=== PATIENT | female | born 1955 | race Caucasian/White ===

== ENCOUNTER → 2019-08-02 10:59 | Outpatient (CLI) | payer MEDICARE, OTHER, SELFPAY ==
--- NOTE | 2019-08-02 | DI.MRI.S_ITS ---
PROCEDURE: MR LUMBAR SPINE WO CON INDICATIONS: Spinal stenosis, lumbosacral region TECHNIQUE: Noncontrast sagittal T1 spin echo and T2 fast echo, sagittal STIR, axial T1 and T2 fast spin echo through the lumbar spine. In cases with scoliosis, additional coronal T2 fast spin echo may be performed. COMPARISON: None. FINDINGS: Image quality: Excellent. Alignment and Curvature: Grade 1/2 anterolisthesis of L4 on L5. Bone Marrow: No acute fracture identified. Postsurgical changes related to laminectomies at L4-L5, L5-S1. Scattered small Schmorl's nodes no definite adjacent marrow edema Spinal Cord: Conus medullaris terminates at the L1-L2 level. Visualized cord demonstrates normal signal and size. Paraspinous Soft Tissues: There is nonspecific, dependent posterior subcutaneous soft tissue edema from level of L1-L3. L1-L2: Mild central canal narrowing. Lateral recess appear grossly patent. Mild bilateral foraminal narrowing. L2-L3: Mild dorsal epidural lipomatosis. Moderate central canal narrowing. Partial effacement of both lateral recesses with bilaterally symmetric appearance. Mild bilateral foraminal stenoses although perineural fat appears grossly preserved bilaterally L3-L4: Severe central canal stenosis. Partial effacement of both lateral recesses with bilaterally symmetric appearance. Mild bilateral foraminal narrowing L4-L5: Minimal residual central canal narrowing. Partial effacement of both lateral recesses with bilaterally symmetric appearance. Severe right foraminal stenosis with nerve root compression. Mild left foraminal narrowing L5-S1: No residual high-grade central canal narrowing. IMPRESSION: Postsurgical changes related to laminectomies at L4-L5 and L5-S1. Severe L3-L4 central canal stenosis and bilateral subarticular narrowing. Severe right L4-L5 foraminal stenosis Moderate L2-L3 central canal narrowing Grade 1/2 anterolisthesis of L4 on L5. Dictated by: Keegan Brown M.D. on 08/04/2019 at 9:53 Approved by: Keegan Brown M.D. on 08/04/2019 at 10:08
== END ==
PROVIDERS: Family Provider Family Medicine; PCP Family Medicine; Referring Provider Acupuncturist; Visit Provider Acupuncturist
DX: M48.061 Spinal stenosis, lumbar region without neurogenic claudication (principal); M43.16 Spondylolisthesis, lumbar region; Z98.890 Other specified postprocedural states
CPT/HCPCS: 72148

== ENCOUNTER 2020-12-01 20:09 | Emergency (ER) | payer MEDICARE, OTHER, SELFPAY ==
[2020-12-01 20:15] VITALS: BP 142/70; PULSE 105; RESP 14; TEMP 37.3; O2SAT 97; BMI 37.7
--- NOTE | 2020-12-01 20:32 | PC.NURSE ---
Pt states cough started 2 months prior, noticed wheezing for 3 days now. History of COPD, asthma, bronchitis. Unable to lay flat, states she sleeps with a wedge to stay propped up. Denies sick contacts, recently traveled and returned from [place].
[2020-12-01 20:47] LABS: COVID19 -Nasal RAPID Negative (Negative)
--- NOTE | 2020-12-01 22:03 | DI.RAD.S_ITS ---
PROCEDURE: XR CHEST 2V INDICATIONS: wheezing TECHNIQUE: 2 views of the chest were acquired. COMPARISON: [facility], CR, XR CHEST 2 VIEWS, 07/23/2020, 14:35. FINDINGS: Surgical changes and devices: None. Lungs and pleura: Lungs are clear. No pleural effusions or pneumothorax. Mediastinum: Mediastinal contours are normal. Heart size is normal. Bones and chest wall: No suspicious bony abnormalities. Soft tissues appear unremarkable. IMPRESSION: No evidence acute pulmonary process. Dictated by: John Broussard M.D. on 12/02/2020 at 8:39 Approved by: John Broussard M.D. on 12/02/2020 at 8:40
--- NOTE | 2020-12-01 22:11 | ED_ITS ---
HPI - URI/Sore Throat General Chief Complaint: Upper Respiratory Symptoms Stated Complaint: difficulty breathing, wheezing, cough Time Seen by Provider: 12/01/20 21:44 Source: patient Mode of arrival: Ambulatory Limitations: no limitations History of Present Illness HPI Narrative: Patient is a 65-year-old female with history of smoking but quit 4 years ago and hypertension presenting with wheezing ongoing for the last 2 months. She has been using her albuterol inhaler nonstop she said that she has had chest x-rays but nothing ever show she feels like she has bronchitis. She denies any fever. However 2 months ago she drove to [place] and and then later went to [place]. She said just before she went to [place] is she tested positive for influenza. She is having some increasing shortness of breath at times her wheezing certainly is not getting any better she is having more nasal drainage cough she occasionally has some chest pain. Related Data Home Medications Medication Instructions Recorded Confirmed albuterol sulfate 90 mcg/actuation 1 puff INHALATION Q4-6H PRN 04/12/18 09/23/19 aerosol inhaler fish, borage, flaxseed oils-omega 1 cap PO DAILY 04/12/18 09/23/19 3,6,9 cb #1 400 mg-400 mg-400 mg cap afukfnrtlwi-xod-fjlrvjoqr-vitC cap PO cap 04/12/18 09/23/19 capsule hydrochlorothiazide 25 mg tablet 25 mg PO DAILY 04/12/18 09/23/19 krill 1,000 mg-omega-3 230 mg-dha 1 cap PO DAILY 04/12/18 09/23/19 60 oa-cie-gzhnbdand-astaxan capsule oxycodone 5 mg tablet 5 mg PO Q4-6H PRN 04/12/18 09/23/19 simvastatin 40 mg tablet 40 mg PO BEDTIME 04/12/18 09/23/19 lisinopril 5 mg tablet 5 mg PO DAILY 11/26/18 09/23/19 oxybutynin chloride 5 mg 5 mg PO DAILY 11/26/18 09/23/19 tablet,extended release 24 hr meloxicam 7.5 mg tablet 7.5 mg PO DAILY PRN 04/22/19 09/23/19 Previous Rx's Medication Instructions Recorded citalopram 10 mg tablet 10 mg PO DAILY #30 tab 01/10/20 oxcarbazepine 300 mg tablet 300 mg PO BID #60 tab 06/27/19 doxycycline hyclate 100 mg PO BID #14 cap 12/01/20 prednisone 40 mg PO DAILY #10 tab 12/01/20 Allergies Allergy/AdvReac Type Severity Reaction Status Date / Time povidone-iodine Allergy Severe hives, Verified 12/01/20 20:20 [From Betadine] blisters soap [From Betadine] Allergy Severe hives, Verified 12/01/20 20:20 blisters Penicillins Allergy Intermediate mouth Verified 12/01/20 20:20 swells bupropion [From Wellbutrin] Allergy Mild Verified 12/01/20 20:20 ibuprofen Allergy Mild Verified 12/01/20 20:20 Sulfa (Sulfonamide Allergy Mild Verified 12/01/20 20:20 Antibiotics) trazodone Allergy Mild Verified 12/01/20 20:20 nitrofurantoin AdvReac Intermediate hives,itchi Verified 12/01/20 20:20 ng aripiprazole [From Abilify] AdvReac Mild akithisia Verified 12/01/20 20:20 fluoxetine [From Prozac] AdvReac Mild Verified 12/01/20 20:20 Review of Systems Review of Systems ROS Unobtainable: All systems reviewed & are unremarkable except as noted in HPI and below Constitutional Constitutional: Denies chills, Denies fever(s), Denies lethargy and Denies weakness ENT Ears, Nose, Mouth, and Throat: Denies change in voice, Denies neck pain and Denies sore throat Cardiovascular Cardiovascular: Reports chest pain, Denies chest pain at rest, Denies irregular heart rhythm, Denies leg edema, Denies dyspnea on exertion and Denies orthopnea Respiratory Respiratory: Reports cough, Denies excessive phlegm production, Denies pain on inspiration, Denies dyspnea on exertion and Reports wheezing Gastrointestinal Gastrointestinal: Denies abdominal pain, Denies change in bowel habits, Denies diarrhea, Denies nausea and Denies vomiting Musculoskeletal Musculoskeletal: Denies back pain, Denies myalgias and Denies neck pain Integumentary/Breasts Skin/Breast: Denies pruritus, Denies erythema, Denies rash and Denies wounds Neurologic Neurologic: Denies weakness Allergic/Immunologic Allergic/Immunologic: Reports wheezing Patient History Medical History Hypertension Social History Smoking Status: Former smoker Smoking Status: Former smoker alcohol intake frequency: holidays/special occasions only Substance Use Type: does not use Exam Initial Vital Signs Initial Vital Signs: Vital Signs Temperature 99.1 F 12/01/20 20:15 Pulse Rate 105 H 12/01/20 20:15 Respiratory Rate 14 12/01/20 20:15 Blood Pressure 142/70 H 12/01/20 20:15 Pulse Oximetry 97 12/01/20 20:15 GENERAL: Alert 65 year female and in no acute distress. HEENT: Head atraumatic,EOMI, pupils reactive, face symmetric, moist mucous membranes CARDIOVASCULAR: Regular rate and rhythm without murmurs, rubs or gallops. RESPIRATORY: Breath sounds equal bilaterally Speaks in full sentences with out difficulty mild bilateral wheezing ABDOMEN: Soft, nontender. Normoactive bowel sounds all 4 quadrants. No guarding or rebound. EXTREMITIES: Normal range of motion, no clubbing or edema. Neurovascularly intact NEUROLOGICAL: Alert and oriented x4.Normal gait and speech. SKIN: Warm, dry, no laceration, no petechiae, no rashes or lesions. Scores PERC Score Age greater than or equal to 50 years: Yes Heart rate greater than or equal to 100 bpm: No Room Air O2 Sat less than 95%: No Unilateral leg swelling: No Recent trauma or surgery: No Hemoptysis: No Prior PE or DVT: No Hormone Use: No Total PERC Score: 1 Wells' Criteria for PE Clinical signs and symptoms of DVT: No PE is #1 Dx or equally likely: No Heart rate > 100: No Immobilization at least 3 days or surg in previous 4 weeks: No History of PE or DVT: No Hemoptysis: No Malignancy w/Treatment within 6 months or palliative: No Wells' PE Score total: 0 Course Orders Ordered: ED Orders 12/01/20 20:26 COVID19 -Nasal swab/Pre-Proc Stat 12/01/20 22:03 XR chest 2V Stat EKG-12 Lead Stat 12/01/20 22:21 Complete Blood Count AUTO DIFF Stat Comprehensive Metabolic Panel Stat D Dimer Stat NT-proBNP (BNP-Adult 18+) Stat Troponin & CK Cardiac Panel Stat Discontinued Medications Albuterol/Ipratropium (Albuterol/Ipratropium 3 Ml Ampul) 3 ml INH NOW ONE Stop: 12/01/20 22:04 Last Admin: 12/01/20 22:15 Dose: 3 ml Documented by: EVETTE Vital Signs Vital signs: Vital Signs - 8 hr 12/01/20 20:15 12/01/20 22:15 12/01/20 22:38 Temperature 99.1 F Pulse Rate 105 H 92 H 91 H Respiratory Rate 14 21 20 Blood Pressure 142/70 H 129/86 Pulse Oximetry 97 95 96 12/01/20 23:03 12/01/20 23:08 Temperature Pulse Rate 89 90 Respiratory Rate Blood Pressure 130/83 Pulse Oximetry 95 97 MDM - URI/Sore Throat Lab Data Attestation: I reviewed the patient's lab results. Result diagrams: 12/01/20 22:21 12/01/20 22:21 Labs: Lab Results 12/01/20 12/01/20 12/01/20 Range/Units 20:26 22:21 22:21 WBC 11.2 H (4.5-11.0) X10^3/uL RBC 5.13 (4.0-5.2) X10^6/uL Hgb 15.3 (12.0-16.0) g/dL Hct 45.0 (36-46) % MCV 87.9 (80-100) fL MCH 29.9 (26-34) PG MCHC 34.0 (30-36) % RDW 12.6 (11.6-14.8) % Plt Count 196 (150-400) X10^3/uL Neut % (Auto) 47.2 L (50-75) % Lymph % (Auto) 41.2 H (25-40) % Miller % (Auto) 6.0 (3-14) % Eos % (Auto) 4.4 H (2-4) % Baso % (Auto) 1.2 (0-2) % Neut # (Auto) 5300 (2473-3955) /uL Lymph # (Auto) 4600 H (2380-2263) /uL Miller # (Auto) 700 (0-900) /uL Eos # (Auto) 500 H (0-450) /uL Baso # (Auto) 100 (0-100) /uL D-Dimer 287 H (<230) ng/mL Sodium (137-145) mmol/L Potassium (3.4-5.1) mmol/L Chloride (98-107) mmol/L Carbon Dioxide (22-32) mmol/L BUN (7-17) mg/dL Creatinine (0.52-1.04) mg/dL Estimated GFR (>60) mL/min BUN/Creatinine Ratio (6-22) Glucose (80-110) mg/dL Calcium (8.4-10.2) mg/dL Total Bilirubin (0.2-1.3) mg/dL AST (14-36) IU/L ALT (<35) IU/L Alkaline Phosphatase (38-126) U/L Total Creatine Kinase (30-135) U/L CK-MB (CK-2) (<2.37) ng/mL CK-MB (CK-2) Rel Index (1.5-5.0) % Troponin I (0.01-0.034) ng/mL NT-Pro-B Natriuret Pep (<125) pg/mL Total Protein (6.3-8.2) g/dL Albumin (3.5-5.0) g/dL Globulin (1.7-4.1) g/dL Albumin/Globulin Ratio (1.0-2.8) SARS-CoV-2 (PCR) Negative (Negative) 12/01/20 Range/Units 22:21 WBC (4.5-11.0) X10^3/uL RBC (4.0-5.2) X10^6/uL Hgb (12.0-16.0) g/dL Hct (36-46) % MCV (80-100) fL MCH (26-34) PG MCHC (30-36) % RDW (11.6-14.8) % Plt Count (150-400) X10^3/uL Neut % (Auto) (50-75) % Lymph % (Auto) (25-40) % Miller % (Auto) (3-14) % Eos % (Auto) (2-4) % Baso % (Auto) (0-2) % Neut # (Auto) (9080-7724) /uL Lymph # (Auto) (0631-7221) /uL Miller # (Auto) (0-900) /uL Eos # (Auto) (0-450) /uL Baso # (Auto) (0-100) /uL D-Dimer (<230) ng/mL Sodium 141 (137-145) mmol/L Potassium 4.0 (3.4-5.1) mmol/L Chloride 105 (98-107) mmol/L Carbon Dioxide 24 (22-32) mmol/L BUN 27 H (7-17) mg/dL Creatinine 1.01 (0.52-1.04) mg/dL Estimated GFR 54.7 L (>60) mL/min BUN/Creatinine Ratio 26.7 H (6-22) Glucose 109 (80-110) mg/dL Calcium 10.1 (8.4-10.2) mg/dL Total Bilirubin 0.5 (0.2-1.3) mg/dL AST 33 (14-36) IU/L ALT 32 (<35) IU/L Alkaline Phosphatase 91 (38-126) U/L Total Creatine Kinase 116 (30-135) U/L CK-MB (CK-2) 1.09 (<2.37) ng/mL CK-MB (CK-2) Rel Index 0.9 L (1.5-5.0) % Troponin I < 0.012 (0.01-0.034) ng/mL NT-Pro-B Natriuret Pep 54 (<125) pg/mL Total Protein 7.8 (6.3-8.2) g/dL Albumin 4.7 (3.5-5.0) g/dL Globulin 3.1 (1.7-4.1) g/dL Albumin/Globulin Ratio 1.5 (1.0-2.8) SARS-CoV-2 (PCR) (Negative) Imaging Data Chest x-ray: Radiologist's Impression: Preliminary report no acute cardiopulmonary process ECG Data Attestation: I personally reviewed and interpreted this ECG as follows: Prior ECG tracings: not available for review Interpretation: Normal sinus rhythm rate 92 p.r. interval 144 QRS 84 QTC [address] changes or T-wave inversions MDM Narrative Medical decision making narrative: The patient initially having chronic ongoing symptoms of wheezing and upper respiratory it sounds as though she has had some workup including chest x-rays she says she was possibly seen at [facility] at some point for chest pain however since then she has had at least 2 very long car trips 1 which she was sick with influenza. Blood work chest x-ray and EKG are overall reassuring she is in certainly no respiratory distress and her COVID is negative. D dimer just over normal limits but she is not having significant shortness of breath only wheezing and cough. At this time she is low risk for PE. She is likely having COPD exacerbation she was a former smoker. Will start her on prednisone and antibiotics. There is no evidence of congestive heart failure or pneumonia. Discharge Plan Departure Patient Disposition: Home Clinical Impression: Acute exacerbation of chronic obstructive pulmonary disease Instructions: Chronic Obstructive Pulmonary Disease Activity Restrictions/Additional Instructions: *You have been diagnosed with COPD exacerbation *What to do: At this time fortunately your COVID is negative no sign of heart injury or pneumonia *Continue to take medications as directed--> SENT TO [facility] IN [place] Prednisone 40 mg once a day for 5 days Doxycycline 100 mg twice daily for 7 days *Follow up with your primary care provider in 2-3 days *Return to ER if you should have increasing shortness of breath, wheezing, chest pain or any new, worsening or concerning symptoms Prescriptions: New doxycycline hyclate 100 mg capsule 100 mg PO BID Qty: 14 RF: 0 prednisone 20 mg tablet 40 mg PO DAILY Qty: 10 RF: 0 No Action lisinopril 5 mg tablet 5 mg PO DAILY RF: 0 oxybutynin chloride 5 mg tablet extended release 24hr 5 mg PO DAILY RF: 0 meloxicam 7.5 mg tablet 7.5 mg PO DAILY PRNRF: 0 simvastatin 40 mg tablet 40 mg PO BEDTIME RF: 0 oxycodone 5 mg tablet 5 mg PO Q4-6H PRNRF: 0 hydrochlorothiazide 25 mg tablet 25 mg PO DAILY RF: 0 albuterol sulfate [Ventolin HFA] 90 mcg/actuation HFA aerosol inhaler 1 puff INHALATION Q4-6H PRNRF: 0 ffuusadhokn-ixo-xmzhqfswt-vitC [Glucosamine Complex-MSM] capsule PO RF: 0 fish,bora,flax oils-om3,6,9no1 [Triple [place] 3-6-9] 400-400-400 mg capsule 1 cap PO DAILY RF: 0 rymna-pi-0-yky-obf-qswoxvg-ast [MegaRed [place]-3 Krill Oil] 1,000-230-60 mg capsule 1 cap PO DAILY RF: 0 citalopram 10 mg tablet 10 mg PO DAILY Qty: 30 RF: 5 oxcarbazepine 300 mg tablet 300 mg PO BID Qty: 60 RF: 3 Referrals: Taisha Nunes MD [Primary Care Provider] -
[2020-12-01 22:15] VITALS: PULSE 92; RESP 21; O2SAT 95
[2020-12-01] MEDS: ALBUTEROL/IPRATROPIUM 3 ML AMPUL INH (22:15)
[2020-12-01 22:35] LABS: Add Manual Diff / Slide Review NO; Basophils Absolute Auto 100 /uL (0-100); Basophils Percent Auto 1.2 % (0-2); Eosinophils Absolute Auto 500 /uL (0-450); Eosinophils Percent Auto 4.4 % (2-4); Hemoglobin 15.3 g/dL (12.0-16.0); Lymphocytes Absolute Auto 4600 /uL (1100-4500); Lymphocytes Percent Auto 41.2 % (25-40); Mean Corpuscular Hemoglobin 29.9 PG (26-34); Mean Corpuscular Volume 87.9 fL (80-100); Monocytes Absolute Auto 700 /uL (0-900); Neutrophils Absolute Auto 5300 /uL (1500-7000); Neutrophils Percent Auto 47.2 % (50-75); Platelet Count 196 X10^3/uL (150-400); Red Blood Cell Count 5.13 X10^6/uL (4.0-5.2); Red Cell Distribution Width 12.6 % (11.6-14.8); White Blood Cell Count 11.2 X10^3/uL (4.5-11.0)
[2020-12-01 22:38] VITALS: BP 129/86; PULSE 91; RESP 20; O2SAT 96
[2020-12-01 22:44] LABS: Alanine Aminotransferase 32 IU/L (<35); Albumin 4.7 g/dL (3.5-5.0); Albumin Globulin Ratio 1.5 (1.0-2.8); Alkaline Phosphatase 91 U/L (38-126); Aspartate Aminotransferase 33 IU/L (14-36); BUN Creatinine Ratio 26.7 (6-22); Bilirubin Total 0.5 mg/dL (0.2-1.3); Blood Urea Nitrogen 27 mg/dL (7-17); Calcium 10.1 mg/dL (8.4-10.2); Carbon Dioxide 24 mmol/L (22-32); Chloride 105 mmol/L (98-107); Creatine Kinase 116 U/L (30-135); Estimated Glomerular Filt Rate 54.7 mL/min (>60); Globulin 3.1 g/dL (1.7-4.1); Glucose 109 mg/dL (80-110); HEMOLYSIS < 15 (0-50); Sodium 141 mmol/L (137-145); Total Protein 7.8 g/dL (6.3-8.2)
[2020-12-01 22:46] LABS: D Dimer 287 ng/mL (<230)
[2020-12-01 22:56] LABS: NT-proBNP (BNP-Adult 18+) 54 pg/mL (<125); Troponin I < 0.012 ng/mL (0.01-0.034)
[2020-12-01 22:59] LABS: CKMB % Relative Index 0.9 % (1.5-5.0); Creatine Kinase MB 1.09 ng/mL (<2.37)
[2020-12-01 23:03] VITALS: PULSE 89; O2SAT 95
[2020-12-01 23:08] VITALS: BP 130/83; PULSE 90; O2SAT 97
== END 2020-12-01 23:17 | disposition home or self-care (01) ==
PROVIDERS: Emergency Provider Emergency Medicine; Family Provider Family Medicine; PCP Family Medicine
DX: J44.1 Chronic obstructive pulmonary disease with (acute) exacerbation (principal); R07.9 Chest pain, unspecified; I10 Essential (primary) hypertension; Z20.822 Contact with and (suspected) exposure to COVID-19
CPT/HCPCS: 36415; 71046; 80053; 82550; 82553; 83880; 84484; 85025; 85379; 87635; 93005; 93010; 94640; 99283; 99284; C9803

== ENCOUNTER 2020-12-19 10:02 | Emergency (ER) | payer MEDICARE, OTHER, SELFPAY ==
[2020-12-19 10:45] VITALS: BP 134/91; PULSE 74; RESP 14; TEMP 36.6; O2SAT 99; BMI 35.4
[2020-12-19 11:04] LABS: Appearance Urine UA SL CLOUDY; Bilirubin Urine UA NEGATIVE (NEGATIVE); Color Urine UA YELLOW; Glucose Urine UA NEGATIVE (Negative); Ketones Urine UA NEGATIVE (NEGATIVE); Leukocyte Esterase Urine UA TRACE (NEGATIVE); Nitrite Urine UA NEGATIVE (Negative); Occult Blood Urine UA NEGATIVE (Negative); Protein Urine UA NEGATIVE (Negative); Urobilinogen Urine UA 0.2 E.U./dL (0.2)
[2020-12-19 11:05] LABS: pH Urine UA 5.5 (4.5-8.0)
[2020-12-19 11:13] LABS: Bacteria Urine Moderate (10-30); Culture Indicated Urine Specimen Cultured; RBC Urine 0-1/HPF (0-5/HPF); Squamous Epithelial Cell Urine 0-1 /HPF (0-5/HPF); WBC Urine 10-30/HPF (0-5/HPF)
[2020-12-19 12:52] VITALS: BP 137/76; PULSE 80; TEMP 36.8; O2SAT 97
--- NOTE | 2020-12-19 13:20 | ED_ITS ---
HPI - Back Pain/Injury General Chief Complaint: Back Pain/Injury Stated Complaint: low back/abd pain x 2days Time Seen by Provider: 12/19/20 13:06 Source: patient Limitations: no limitations History of Present Illness HPI Narrative: Patient is a 65-year-old female with history of COPD presenting with back pain and painful frequent urination for 2 days. She also has a history of kidney stones but says that this does not feel like kidney stone. She denies any fever chills nausea or vomiting. She is off having abdominal pain all over as well. She was previously on prednisone and doxycycline for COPD exacerbation on 01 of December. She says she started taking kratom for pain, she bought some last night Related Data Home Medications Medication Instructions Recorded Confirmed albuterol sulfate 90 mcg/actuation 1 puff INHALATION Q4-6H PRN 04/12/18 09/23/19 aerosol inhaler (Ventolin HFA) fish, borage, flaxseed oils-omega 1 cap PO DAILY 04/12/18 09/23/19 3,6,9 cb #1 400 mg-400 mg-400 mg cap (Triple [place] 3-6-9) qzxwazlolby-azf-jqzsjuint-vitC cap PO cap 04/12/18 09/23/19 capsule (Glucosamine Complex-MSM) hydrochlorothiazide 25 mg tablet 25 mg PO DAILY 04/12/18 09/23/19 krill 1,000 mg-omega-3 230 mg-dha 1 cap PO DAILY 04/12/18 09/23/19 60 fy-hsi-zioogvwfa-astaxan capsule (MegaRed [place]-3 Krill Oil) oxycodone 5 mg tablet 5 mg PO Q4-6H PRN 04/12/18 09/23/19 simvastatin 40 mg tablet 40 mg PO BEDTIME 04/12/18 09/23/19 lisinopril 5 mg tablet 5 mg PO DAILY 11/26/18 09/23/19 oxybutynin chloride 5 mg 5 mg PO DAILY 11/26/18 09/23/19 tablet,extended release 24 hr meloxicam 7.5 mg tablet 7.5 mg PO DAILY PRN 04/22/19 09/23/19 Previous Rx's Medication Instructions Recorded citalopram 10 mg tablet 10 mg PO DAILY #30 tab 06/27/19 oxcarbazepine 300 mg tablet 300 mg PO BID #60 tab 06/27/19 doxycycline hyclate 100 mg capsule 100 mg PO BID #14 cap 12/01/20 prednisone 20 mg tablet 40 mg PO DAILY #10 tab 12/01/20 cephalexin 500 mg capsule 500 mg PO BID 7 Days #14 cap 12/19/20 ciprofloxacin HCl 500 mg tablet 500 mg PO BID #14 tab 12/19/20 (Cipro) Allergies Allergy/AdvReac Type Severity Reaction Status Date / Time povidone-iodine Allergy Severe hives, Verified 12/01/20 20:20 [From Betadine] blisters soap [From Betadine] Allergy Severe hives, Verified 12/01/20 20:20 blisters Penicillins Allergy Intermediate mouth Verified 12/01/20 20:20 swells bupropion [From Wellbutrin] Allergy Mild Verified 12/01/20 20:20 ibuprofen Allergy Mild Verified 12/01/20 20:20 Sulfa (Sulfonamide Allergy Mild Verified 12/01/20 20:20 Antibiotics) trazodone Allergy Mild Verified 12/01/20 20:20 nitrofurantoin AdvReac Intermediate hives,itchi Verified 12/01/20 20:20 ng aripiprazole [From Abilify] AdvReac Mild akithisia Verified 12/01/20 20:20 fluoxetine [From Prozac] AdvReac Mild Verified 12/01/20 20:20 Review of Systems Review of Systems Narrative: GENERAL: Denies chills, fatigue, malaise, fever, sweats, travel HEENT: Denies sinus pain, ear pain, sore throat, difficulty swallowing, neck pain RESPIRATORY: Denies dyspnea, cough, wheezing, hemoptysis, sputum. CARDIOVASCULAR: Denies chest pain, palpitations, orthopnea, edema GASTROINTESTINAL: Denies nausea, vomiting, abdominal pain, diarrhea, constipat ion, melena. : See HPI MUSCULOSKELETAL: Denies weakness, joint pain, or bony pain SKIN: No rash, no erythema, no pruritus NEUROLOGIC: Denies weakness, dizziness, headache, numbness, change in speech, confusion PSYCHIATRIC: No concerning psychosocial issues. 12 point review of systems is negative except for those stated above and HPI Patient History Medical History Hypertension Social History Smoking Status: Former smoker Smoking Status: Former smoker alcohol intake frequency: holidays/special occasions only Substance Use Type: other Exam Initial Vital Signs Initial Vital Signs: Vital Signs Temperature 97.9 F 12/19/20 10:45 Pulse Rate 74 12/19/20 10:45 Respiratory Rate 14 12/19/20 10:45 Blood Pressure 134/91 H 12/19/20 10:45 Pulse Oximetry 99 12/19/20 10:45 GENERAL: Alert 65-year-old female appears to not feel well HEENT: Head atraumatic,EOMI, pupils reactive, face symmetric, moist mucous membranes CARDIOVASCULAR: Regular rate and rhythm without murmurs, rubs or gallops. RESPIRATORY: Breath sounds equal bilaterally, no wheezes rales or rhonchi. ABD no right CVA tenderness, no right upper quadrant tenderness negative Olivares sign no right lower quadrant tenderness EXTREMITIES: Normal range of motion, no clubbing or edema. Neurovascularly intact NEUROLOGICAL: Alert and oriented x4.Normal gait and speech. SKIN: Warm, dry, no laceration, no petechiae, no rashes or lesions. Course Orders Ordered: ED Orders 12/19/20 10:45 Urinalysis and Microscopic Stat Urine Culture Stat Urine Drug Screen, Rapid Stat 12/19/20 13:35 Complete Blood Count AUTO DIFF Stat Comprehensive Metabolic Panel Stat Lipase Stat Discontinued Medications Acetaminophen (Acetaminophen 325 Mg Tablet) 975 mg PO NOW ONE Stop: 12/19/20 13:17 Last Admin: 12/19/20 14:32 Dose: 975 mg Documented by: [email or web address] Sodium Chloride (Normal Saline 0.9%) 1,000 mls @ 1,000 mls/hr IV BOLUS ONE Stop: 12/19/20 14:15 Last Admin: 12/19/20 14:31 Dose: 1,000 mls/hr Documented by: [email or web address] Vital Signs Vital signs: Vital Signs - 8 hr 12/19/20 12:52 12/19/20 15:25 12/19/20 15:26 Temperature 98.3 F Pulse Rate 80 66 67 Blood Pressure 137/76 129/66 Pulse Oximetry 97 89 L 98 MDM - Back Pain/Injury Lab Data Result diagrams: 12/19/20 13:35 12/19/20 13:35 Labs: Lab Results 12/19/20 12/19/20 12/19/20 Range/Units 10:45 10:45 13:35 WBC 10.2 (4.5-11.0) X10^3/uL RBC 4.85 (4.0-5.2) X10^6/uL Hgb 14.4 (12.0-16.0) g/dL Hct 42.9 (36-46) % MCV 88.6 (80-100) fL MCH 29.7 (26-34) PG MCHC 33.5 (30-36) % RDW 13.1 (11.6-14.8) % Plt Count 187 (150-400) X10^3/uL Neut % (Auto) 54.6 (50-75) % Lymph % (Auto) 35.3 (25-40) % [place] % (Auto) 6.3 (3-14) % Eos % (Auto) 3.1 (2-4) % Baso % (Auto) 0.7 (0-2) % Neut # (Auto) 5600 (7760-3858) /uL Lymph # (Auto) 3600 (8730-0762) /uL [place] # (Auto) 600 (0-900) /uL Eos # (Auto) 300 (0-450) /uL Baso # (Auto) 100 (0-100) /uL Sodium (137-145) mmol/L Potassium (3.4-5.1) mmol/L Chloride (98-107) mmol/L Carbon Dioxide (22-32) mmol/L BUN (7-17) mg/dL Creatinine (0.52-1.04) mg/dL Estimated GFR (>60) mL/min BUN/Creatinine Ratio (6-22) Glucose (80-110) mg/dL Calcium (8.4-10.2) mg/dL Total Bilirubin (0.2-1.3) mg/dL AST (14-36) IU/L ALT (<35) IU/L Alkaline Phosphatase (38-126) U/L Total Protein (6.3-8.2) g/dL Albumin (3.5-5.0) g/dL Globulin (1.7-4.1) g/dL Albumin/Globulin Ratio (1.0-2.8) Lipase (23-300) U/L Urine Color Yellow Urine Appearance Sl cloudy Urine pH 5.5 (4.5-8.0) Ur Specific [place] 1.020 (1.000-1.035) Urine Protein Negative (Negative) Urine Glucose (UA) Negative (Negative) g/dL Urine Ketones Negative (NEGATIVE) Urine Occult Blood Negative (Negative) Urine Nitrate Negative (Negative) Urine Bilirubin Negative (NEGATIVE) Urine Urobilinogen 0.2 (0.2) E.U./dL Ur Leukocyte Esterase Trace H (NEGATIVE) Urine RBC 0-1/hpf (0-5/HPF) Urine WBC 10-30/hpf H (0-5/HPF) Ur Squamous Epith Cells 0-1 /hpf (0-5/HPF) Urine Bacteria Moderate (10-30) H (None) Ur Culture Indicated? Specimen cultured U Opiates 300ng/mL cut Negative (Negative) Ur Oxycodone Screen Negative (Negative) Urine Methadone Screen Negative (Negative) Ur Barbiturates Screen Negative (Negative) U Tricyclic Antidepress Negative (Negative) Ur Phencyclidine Scrn Negative (Negative) Ur Amphetamines Screen Negative (Negative) U Methamphetamines Scrn Negative (Negative) Ur MDMA Scrn (Ecstasy) Negative (Negative) U Benzodiazepines Scrn Negative (Negative) Urine Cocaine Screen Negative (Negative) U Marijuana (THC) Screen Positive H (Negative) 12/19/20 Range/Units 13:35 WBC (4.5-11.0) X10^3/uL RBC (4.0-5.2) X10^6/uL Hgb (12.0-16.0) g/dL Hct (36-46) % MCV (80-100) fL MCH (26-34) PG MCHC (30-36) % RDW (11.6-14.8) % Plt Count (150-400) X10^3/uL Neut % (Auto) (50-75) % Lymph % (Auto) (25-40) % [place] % (Auto) (3-14) % Eos % (Auto) (2-4) % Baso % (Auto) (0-2) % Neut # (Auto) (5867-4862) /uL Lymph # (Auto) (9349-8526) /uL [place] # (Auto) (0-900) /uL Eos # (Auto) (0-450) /uL Baso # (Auto) (0-100) /uL Sodium 141 (137-145) mmol/L Potassium 3.9 (3.4-5.1) mmol/L Chloride 104 (98-107) mmol/L Carbon Dioxide 30 (22-32) mmol/L BUN 17 (7-17) mg/dL Creatinine 0.88 (0.52-1.04) mg/dL Estimated GFR > 60.0 (>60) mL/min BUN/Creatinine Ratio 19.3 (6-22) Glucose 85 (80-110) mg/dL Calcium 9.9 (8.4-10.2) mg/dL Total Bilirubin 0.5 (0.2-1.3) mg/dL AST 31 (14-36) IU/L ALT 31 (<35) IU/L Alkaline Phosphatase 75 (38-126) U/L Total Protein 7.5 (6.3-8.2) g/dL Albumin 4.6 (3.5-5.0) g/dL Globulin 2.9 (1.7-4.1) g/dL Albumin/Globulin Ratio 1.6 (1.0-2.8) Lipase 103 (23-300) U/L Urine Color Urine Appearance Urine pH (4.5-8.0) Ur Specific [place] (1.000-1.035) Urine Protein (Negative) Urine Glucose (UA) (Negative) g/dL Urine Ketones (NEGATIVE) Urine Occult Blood (Negative) Urine Nitrate (Negative) Urine Bilirubin (NEGATIVE) Urine Urobilinogen (0.2) E.U./dL Ur Leukocyte Esterase (NEGATIVE) Urine RBC (0-5/HPF) Urine WBC (0-5/HPF) Ur Squamous Epith Cells (0-5/HPF) Urine Bacteria (None) Ur Culture Indicated? U Opiates 300ng/mL cut (Negative) Ur Oxycodone Screen (Negative) Urine Methadone Screen (Negative) Ur Barbiturates Screen (Negative) U Tricyclic Antidepress (Negative) Ur Phencyclidine Scrn (Negative) Ur Amphetamines Screen (Negative) U Methamphetamines Scrn (Negative) Ur MDMA Scrn (Ecstasy) (Negative) U Benzodiazepines Scrn (Negative) Urine Cocaine Screen (Negative) U Marijuana (THC) Screen (Negative) [facility] Narrative Medical decision making narrative: Patient does have UTI possible pyelo. She has obvious chronic back pain even wearing a lumbar brace. Blood work is overall reassuring. At this time she really has no flank pain and does not think it is kidney stone related. Pain seems to be controlled in the emergency department. Probable pyelonephritis. The patient has multiple allergies to medications. Initially she was written for Cipro however said that she cannot take Cipro. I then started her on Keflex. She does not remember what allergy she has to penicillin and is willing to try Keflex. At this time low suspicion for appendicitis. This time she agrees no CT and feels ready and able to go Discharge Plan Departure Patient Disposition: Home Clinical Impression: Acute UTI Instructions: DI for Urinary Tract Infection (UTI) Activity Restrictions/Additional Instructions: *You have been diagnosed with UTI *What to do: At this time you are found to have a bladder infection. Please take antibiotics as prescribed until gone *Continue to take medications as directed Cephalexin 500 mg twice a day for 7 days *Follow up with your primary care provider in 2-3 days *Return to ER if you should have increasing pain, fever, persistent vomiting or any new, worsening or concerning symptoms Prescriptions: New ciprofloxacin HCl [Cipro] 500 mg tablet 500 mg PO BID Qty: 14 RF: 0 cephalexin 500 mg capsule 500 mg PO BID 7 Days Qty: 14 RF: 0 No Action lisinopril 5 mg tablet 5 mg PO DAILY RF: 0 oxybutynin chloride 5 mg tablet extended release 24hr 5 mg PO DAILY RF: 0 meloxicam 7.5 mg tablet 7.5 mg PO DAILY PRNRF: 0 simvastatin 40 mg tablet 40 mg PO BEDTIME RF: 0 oxycodone 5 mg tablet 5 mg PO Q4-6H PRNRF: 0 hydrochlorothiazide 25 mg tablet 25 mg PO DAILY RF: 0 albuterol sulfate [Ventolin HFA] 90 mcg/actuation HFA aerosol inhaler 1 puff INHALATION Q4-6H PRNRF: 0 uqsdakqjhpu-aec-fzalsmtft-vitC [Glucosamine Complex-MSM] capsule PO RF: 0 fish,bora,flax oils-om3,6,9no1 [Triple [place] 3-6-9] 400-400-400 mg capsule 1 cap PO DAILY RF: 0 uatex-dv-6-iba-xtr-jbjatqx-ast [MegaRed [place]-3 Krill Oil] 1,000-230-60 mg capsule 1 cap PO DAILY RF: 0 citalopram 10 mg tablet 10 mg PO DAILY Qty: 30 RF: 5 oxcarbazepine 300 mg tablet 300 mg PO BID Qty: 60 RF: 3 doxycycline hyclate 100 mg capsule 100 mg PO BID Qty: 14 RF: 0 prednisone 20 mg tablet 40 mg PO DAILY Qty: 10 RF: 0 Referrals: Taisha Nunes MD [Primary Care Provider] -
[2020-12-19 13:46] LABS: UR Morphine/Opiate cutoff 300 Negative (Negative); Ur Creatinine Normal (Normal); Ur Specific Gravity Normal (Normal); Urine Amphetamines Negative (Negative); Urine Barbiturates Negative (Negative); Urine Benzodiazepines Negative (Negative); Urine Cocaine Negative (Negative); Urine MDMA Negative (Negative); Urine Methadone Negative (Negative); Urine Methamphetamines Negative (Negative); Urine Oxycodone Negative (Negative); Urine Phencyclidine Negative (Negative); Urine Tetrahydrocannabinol Positive (Negative); Urine Tricyclic Antidepressant Negative (Negative); Urine pH Normal (Normal)
[2020-12-19 14:25] LABS: Add Manual Diff / Slide Review NO; Basophils Absolute Auto 100 /uL (0-100); Basophils Percent Auto 0.7 % (0-2); Eosinophils Absolute Auto 300 /uL (0-450); Eosinophils Percent Auto 3.1 % (2-4); Hematocrit 42.9 % (36-46); Hemoglobin 14.4 g/dL (12.0-16.0); Lymphocytes Absolute Auto 3600 /uL (1100-4500); Lymphocytes Percent Auto 35.3 % (25-40); Mean Corpuscular HGB Conc 33.5 % (30-36); Mean Corpuscular Hemoglobin 29.7 PG (26-34); Mean Corpuscular Volume 88.6 fL (80-100); Monocytes Absolute Auto 600 /uL (0-900); Monocytes Percent Auto 6.3 % (3-14); Neutrophils Absolute Auto 5600 /uL (1500-7000); Neutrophils Percent Auto 54.6 % (50-75); Platelet Count 187 X10^3/uL (150-400); Red Blood Cell Count 4.85 X10^6/uL (4.0-5.2); Red Cell Distribution Width 13.1 % (11.6-14.8); White Blood Cell Count 10.2 X10^3/uL (4.5-11.0)
[2020-12-19] MEDS: SODIUM CHLORIDE 0.9% 1,000 ML 1000 ML IV (14:31)
[2020-12-19] MEDS: ACETAMINOPHEN 325 MG TABLET 975 MG PO (14:32)
[2020-12-19 14:35] LABS: Alanine Aminotransferase 31 IU/L (<35); Albumin 4.6 g/dL (3.5-5.0); Albumin Globulin Ratio 1.6 (1.0-2.8); Alkaline Phosphatase 75 U/L (38-126); Aspartate Aminotransferase 31 IU/L (14-36); BUN Creatinine Ratio 19.3 (6-22); Bilirubin Total 0.5 mg/dL (0.2-1.3); Blood Urea Nitrogen 17 mg/dL (7-17); Calcium 9.9 mg/dL (8.4-10.2); Carbon Dioxide 30 mmol/L (22-32); Chloride 104 mmol/L (98-107); Estimated Glomerular Filt Rate > 60.0 mL/min (>60); Globulin 2.9 g/dL (1.7-4.1); Glucose 85 mg/dL (80-110); HEMOLYSIS < 15 (0-50); Lipase 103 U/L (23-300); Potassium 3.9 mmol/L (3.4-5.1); Sodium 141 mmol/L (137-145); Total Protein 7.5 g/dL (6.3-8.2)
[2020-12-19 15:25] VITALS: PULSE 66; O2SAT 89
[2020-12-19 15:26] VITALS: BP 129/66; PULSE 67; O2SAT 98
--- NOTE | 2020-12-27 22:51 | PC.NURSE ---
late entry: Fluids completed at time of discharge. 1,000ml infused
== END 2020-12-19 15:36 | disposition home or self-care (01) ==
PROVIDERS: Emergency Provider Emergency Medicine; Family Provider Family Medicine; PCP Family Medicine
DX: N39.0 Urinary tract infection, site not specified (principal)
CPT/HCPCS: 36415; 80053; 80305; 81001; 83690; 85025; 87077; 87086; 87186; 96360; 99284

== ENCOUNTER → 2021-09-01 14:29 | Outpatient (CLI) | payer MEDICARE, OTHER, SELFPAY ==
[2021-09-01 15:29] LABS: COVID19 -Nasal RAPID Negative (Negative)
== END ==
PROVIDERS: Family Provider Family Medicine; PCP Internal Medicine; Referring Provider Internal Medicine; Visit Provider Internal Medicine
DX: Z20.822 Contact with and (suspected) exposure to COVID-19 (principal)
CPT/HCPCS: 87635; C9803

== ENCOUNTER → 2021-09-02 08:53 | Outpatient (CLI) | payer MEDICARE, OTHER, SELFPAY ==
--- NOTE | 2021-09-07 10:40 | PM.PFT.1 ---
Pulmonary Function Test Referral & Results Date Patient Seen: 09/02/21 Requesting provider: Juan Ramon Correa Results: The spirometry demonstrates an FVC of 3.06 L which is 82% of predicted. The FEV1 was measured at 2.34 L which is 83% of predicted. The FEV1/FVC ratio was 77 which is 100% of predicted. Following the administration of bronchodilator there was a 12% improvement in FEV1 and a 55% improvement in FEF 25-75% Lung volumes show an SVC of 3.25 L which is 95% of predicted. The diffusing capacity was measured at 20.96 which is 93% of predicted. The maximum voluntary ventilation was normal 3.06 L Interpretation: This study demonstrates perhaps very mild obstructive lung disease based on reduction FEV1 as well as minimal improvement following bronchodilator as above However FEV1/FVC ratio remains normal Lung volumes and diffusing capacity are normal Charges Tests/bronchodilator: Complete PFT: with bronchodilator Tests: Yes Diffusing capacity
== END ==
PROVIDERS: Family Provider Family Medicine; PCP Internal Medicine; Referring Provider Internal Medicine; Visit Provider Internal Medicine
DX: R06.02 Shortness of breath (principal)
CPT/HCPCS: 94060; 94726; 94729

== ENCOUNTER 2021-09-15 14:06 | Emergency (ER) | payer MEDICARE, OTHER, SELFPAY ==
[2021-09-15 14:15] VITALS: BP 157/71; PULSE 66; RESP 14; TEMP 36.4; O2SAT 97; BMI 35.4
--- NOTE | 2021-09-15 14:28 | DI.RAD.S_ITS ---
PROCEDURE: XR FOOT RT MIN 3V INDICATIONS: Fall/injury TECHNIQUE: 3 views of the foot were acquired. COMPARISON: None. FINDINGS: Bones: No fractures or dislocations. No suspicious bony lesions. There is calcaneal spurring noted. Soft tissues: No tibiotalar joint effusion. Achilles tendon appears normal. IMPRESSION: No acute radiographic findings. If pain persists, followup imaging in 5-7 days is recommended to exclude occult fracture. Dictated by: Abigail Longoria M.D. on 09/15/2021 at 14:57 Approved by: Abigail Longoria M.D. on 09/15/2021 at 14:58
--- NOTE | 2021-09-15 14:28 | DI.RAD.S_ITS ---
PROCEDURE: XR HIP W PEL IF DONE RT 2V INDICATIONS: Fall/injury TECHNIQUE: AP pelvis with lateral view(s) of the right hip(s). COMPARISON: None. FINDINGS: Bones: No fractures or dislocations. Mild to moderate right hip joint osteoarthritic changes are seen. No evidence of avascular necrosis of femoral head. Pelvic ring appears intact. No suspicious bony lesions. Soft tissues: The visualized bowel gas pattern is normal. No suspicious soft tissue calcifications. IMPRESSION: Mild to moderate right hip joint osteoarthritis. No definite acute right hip fracture or dislocation. No evidence of avascular necrosis. Dictated by: Narinder Reich M.D. on 09/15/2021 at 15:05 Approved by: Narinder Reich M.D. on 09/15/2021 at 15:06
--- NOTE | 2021-09-15 14:28 | DI.RAD.S_ITS ---
PROCEDURE: XR SHOULDER RT MIN 2V INDICATIONS: Fall/injury TECHNIQUE: 3 views of the shoulder were acquired. COMPARISON: None. FINDINGS: Bones: No fractures or dislocations. No suspicious bony lesions. Visualized ribs appear intact. Soft tissues: No suspicious soft tissue calcifications. IMPRESSION: No acute radiographic findings. If pain persists, followup imaging in 5-7 days is recommended to exclude occult fracture. Dictated by: Abigail Longoria M.D. on 09/15/2021 at 15:02 Approved by: Abigail Longoria M.D. on 09/15/2021 at 15:03
--- NOTE | 2021-09-15 14:28 | DI.RAD.S_ITS ---
PROCEDURE: XR KNEE RT 3V INDICATIONS: Fall/injury TECHNIQUE: 3 views of the knee were acquired. COMPARISON: None. FINDINGS: Bones: No fractures or dislocations. There is moderate tricompartmental osteoarthritis more prominent in lateral femoral tibial compartment. No suspicious bony lesions. Soft tissues: Moderate suprapatellar joint effusion is seen. No suspicious soft tissue calcifications. IMPRESSION: No acute right knee fracture or dislocation. Moderate tricompartmental osteoarthritis and moderate suprapatellar joint effusion. Dictated by: Narinder Reich M.D. on 09/15/2021 at 15:00 Approved by: Narinder Reich M.D. on 09/15/2021 at 15:04
--- NOTE | 2021-09-15 14:28 | DI.RAD.S_ITS ---
PROCEDURE: XR ANKLE RT MIN 3V INDICATIONS: Fall/injury TECHNIQUE: 3 views of the ankle were acquired. COMPARISON: None. FINDINGS: Bones: No fractures or dislocations. Ankle mortise is normally aligned. No suspicious bony lesions. Soft tissues: No tibiotalar joint effusion. Achilles tendon appears normal. IMPRESSION: No acute radiographic findings. If pain persists, followup imaging in 5-7 days is recommended to exclude occult fracture. Dictated by: Abigail Longoria M.D. on 09/15/2021 at 14:56 Approved by: Abigail Longoria M.D. on 09/15/2021 at 14:57
--- NOTE | 2021-09-15 14:29 | ED.FALL ---
HPI - Fall General Chief Complaint: Fall Stated Complaint: Fall off porch, Pain right side, Knee arm shoulder Time Seen by Provider: 09/15/21 14:18 Source: patient Mode of arrival: Ambulatory History of Present Illness HPI Narrative: Patient brought here by her daughter. Had a witnessed fall by her daughter. Patient was on her porch and her right knee gave out and fell off the porch. Denies hitting her head. No loss of consciousness. On complains of right shoulder right hip and pelvis and right knee and right ankle/foot pain. Skin is intact. Is allergic to many medications. Does not want anything for pain at this time. Patient moving shoulder hip knee ankle without any difficulty at this time. Able to bring her right foot straight up to 60% Related Data Home Medications Medication Instructions Recorded Confirmed albuterol sulfate 90 mcg/actuation 1 puff INHALATION Q4-6H PRN 04/12/18 09/23/19 aerosol inhaler (Ventolin HFA) fish, borage, flaxseed oils-omega 1 cap PO DAILY 04/12/18 09/23/19 3,6,9 cb #1 400 mg-400 mg-400 mg cap (Triple [place] 3-6-9) kwbidexyepf-ows-etngcocwa-vitC cap PO cap 04/12/18 09/23/19 capsule (Glucosamine Complex-MSM) hydrochlorothiazide 25 mg tablet 25 mg PO DAILY 04/12/18 09/23/19 krill 1,000 mg-omega-3 230 mg-dha 1 cap PO DAILY 04/12/18 09/23/19 60 sk-qbu-jrcdlcsbg-astaxan capsule (MegaRed [place]-3 Krill Oil) oxycodone 5 mg tablet 5 mg PO Q4-6H PRN 04/12/18 09/23/19 simvastatin 40 mg tablet 40 mg PO BEDTIME 04/12/18 09/23/19 lisinopril 5 mg tablet 5 mg PO DAILY 11/26/18 09/23/19 oxybutynin chloride 5 mg 5 mg PO DAILY 11/26/18 09/23/19 tablet,extended release 24 hr meloxicam 7.5 mg tablet 7.5 mg PO DAILY PRN 04/22/19 09/23/19 Previous Rx's Medication Instructions Recorded citalopram 10 mg tablet 10 mg PO DAILY #30 tab 06/27/19 oxcarbazepine 300 mg tablet 300 mg PO BID #60 tab 06/27/19 doxycycline hyclate 100 mg capsule 100 mg PO BID #14 cap 12/01/20 prednisone 20 mg tablet 40 mg PO DAILY #10 tab 12/01/20 ciprofloxacin HCl 500 mg tablet 500 mg PO BID #14 tab 12/19/20 (Cipro) prednisone 20 mg tablet 60 mg PO DAILY 5 Days #15 tab 09/20/21 Allergies Allergy/AdvReac Type Severity Reaction Status Date / Time povidone-iodine Allergy Severe hives, Verified 09/15/21 14:20 [From Betadine] blisters soap [From Betadine] Allergy Severe hives, Verified 09/15/21 14:20 blisters Penicillins Allergy Intermediate mouth Verified 09/15/21 14:20 swells bupropion [From Wellbutrin] Allergy Mild Verified 09/15/21 14:20 ibuprofen Allergy Mild Verified 09/15/21 14:20 Sulfa (Sulfonamide Allergy Mild Verified 09/15/21 14:20 Antibiotics) trazodone Allergy Mild Verified 09/15/21 14:20 nitrofurantoin AdvReac Intermediate hives,itchi Verified 09/15/21 14:20 ng aripiprazole [From Abilify] AdvReac Mild akithisia Verified 09/15/21 14:20 fluoxetine [From Prozac] AdvReac Mild Verified 09/15/21 14:20 Review of Systems Review of Systems Narrative: GENERAL: Denies chills, fatigue, malaise, fever, sweats. HEENT: Denies sinus pain, ear pain, sore throat RESPIRATORY: Denies dyspnea, cough CARDIOVASCULAR: Denies chest pain, palpitations GASTROINTESTINAL: Denies nausea, vomiting, abdominal pain : Denies dysuria, frequency, hematuria MUSCULOSKELETAL: Positive for muscle or bony pain SKIN: Denies rash, skin lesions NEUROLOGIC: Denies weakness, numbness ROS Unobtainable: All systems reviewed & are unremarkable except as noted in HPI and below Patient History Medical History Hypertension Social History Smoking Status: Former smoker Smoking Status: Former smoker alcohol intake frequency: holidays/special occasions only Substance Use Type: other Exam Narrative Exam Narrative: GENERAL: in no distress, not toxic not dyspneic HEAD: Normocephalic. Nontender scalp and face no skin injury seen. EYES: Pupils equal round No scleral icterus. NECK: Trachea midline. No midline tenderness or step-off of the cervical thoracic or lumbar spine CARDIOVASCULAR: Regular rate and rhythm without murmurs RESPIRATORY: Clear to auscultation. Breath sounds equal bilaterally. No wheezes, rales, or rhonchi. GASTROINTESTINAL: Abdomen soft, non-tender EXTREMITIES: No gross deformities. There is mild tenderness to the right shoulder but has full active range of motion actively without any difficulties. Nontender elbow and wrist and right hand. Examination of the right hip. Leg is not shortened or externally or internally rotated., mild tenderness to the right hip. Able to flex and extend at the hip without any difficulty. Raises her right foot up to 60?. Mild edema bruising to the right anterior knee. However able to actively flex to 90? and fully extend. No gross deformity. Mild tenderness to touch. No pain or laxity to the right knee with anterior posterior medial lateral and rotational stress of the right leg. No gross deformity of the ankle or right foot. Foot is warm soft and pink with strong pedal pulse and light touch intact to foot and toes. No skin injury seen. No bruising. Able to fully flex and extend at the right ankle. BACK: No flank tenderness. NEURO: AOx4. SKIN: Warm and dry PSYCH: Not anxious, is cooperative Initial Vital Signs Initial Vital Signs: Vital Signs Temperature 97.6 F 09/15/21 14:15 Pulse Rate 66 09/15/21 14:15 Respiratory Rate 14 09/15/21 14:15 Blood Pressure 157/71 H 09/15/21 14:15 Pulse Oximetry 97 09/15/21 14:15 Course Course Course Narrative: No new issues during course of stay Orders Ordered: ED Orders 09/15/21 14:28 XR ankle RT min 3V Stat XR foot RT min 3V Stat XR hip w pel if done RT 2V Stat XR knee RT 3V Stat XR shoulder RT min 2V Stat Reevaluation(s) Reevaluation #1: Reviewed results with patient. Pain is controlled. Has been up and walking and bearing weight without any difficulties. Return precautions reviewed with her. She desires discharge home She does not want a knee immobilizer rating apparatus. She has a short knee brace at home she would like to wear. Time: 15:55 Vital Signs Vital signs: Vital Signs - 8 hr 09/15/21 14:15 Temperature 97.6 F Pulse Rate 66 Respiratory Rate 14 Blood Pressure 157/71 H Pulse Oximetry 97 MDM - Fall Differential Diagnosis Differential diagnosis: Likely other (Fracture/sprain/strain of joints, contusions) Imaging Data Extremity x-ray #1: Radiologist's Impression: [address] [address] XRay Report Signed Patient: Hannah Meadows MR#: [id number] : 1955 Acct:[id number] Age/Sex: 66 / F Date of Service: 09/15/21 Loc: ED Accession Number: [id number] ?? Procedure: XR shoulder RT min 2V Ordering Provider: Raz Bailey MD PROCEDURE:? XR SHOULDER RT MIN 2V ? INDICATIONS:? Fall/injury ? TECHNIQUE:? 3 views of the shoulder were acquired.? ? COMPARISON:? None. ? FINDINGS:? ? Bones:? No fractures or dislocations.? No suspicious bony lesions.? Visualized ribs appear intact.? ? Soft tissues:? No suspicious soft tissue calcifications.? ? IMPRESSION:? No acute radiographic findings. If pain persists, followup imaging in 5-7 days is recommended to exclude occult fracture. ? ? Dictated by: Abigail Longoria M.D. on 09/15/2021 at 15:02 ? ? Approved by: Abigail Longoria M.D. on 09/15/2021 at 15:03 ? Extremity x-ray #2: Radiologist's Impression: [address] [address] XRay Report Signed Patient: Hannah Meadows MR#: [id number] : 1955 Acct:[id number] Age/Sex: 66 / F Date of Service: 09/15/21 Loc: ED Accession Number: [id number] ?? Procedure: XR knee RT 3V Ordering Provider: Raz Bailey MD PROCEDURE:? XR KNEE RT 3V ? INDICATIONS:? Fall/injury ? TECHNIQUE:? 3 views of the knee were acquired.? ? COMPARISON:? None. ? FINDINGS:? ? Bones:? No fractures or dislocations.? There is moderate tricompartmental osteoarthritis more prominent in lateral femoral tibial compartment.? No suspicious bony lesions.? ? Soft tissues:? Moderate suprapatellar joint effusion is seen.? No suspicious soft tissue calcifications.? ? ? IMPRESSION:? No acute right knee fracture or dislocation.? Moderate tricompartmental osteoarthritis and moderate suprapatellar joint effusion. ? ? Dictated by: Narinder Reich M.D. on 09/15/2021 at 15:00 ? ? Approved by: Narinder Reich M.D. on 09/15/2021 at 15:04 ? Extremity x-ray #3: Radiologist's Impression: [address] [address] XRay Report Signed Patient: Hannah Meadows MR#: [id number] : 1955 Acct:[id number] Age/Sex: 66 / F Date of Service: 09/15/21 Loc: ED Accession Number: [id number] ?? Procedure: XR hip w pel if done RT 2V Ordering Provider: Raz Bailey MD PROCEDURE:? XR HIP W PEL IF DONE RT 2V ? INDICATIONS:? Fall/injury ? TECHNIQUE:? AP pelvis with lateral view(s) of the right hip(s).? ? COMPARISON:? None. ? FINDINGS:? ? Bones:? No fractures or dislocations.? Mild to moderate right hip joint osteoarthritic changes are seen.? No evidence of avascular necrosis of femoral head.? Pelvic ring appears intact.? No suspicious bony lesions.? ? Soft tissues:? The visualized bowel gas pattern is normal.? No suspicious soft tissue calcifications.? ? ? IMPRESSION:? Mild to moderate right hip joint osteoarthritis.? No definite acute right hip fracture or dislocation.? No evidence of avascular necrosis. ? ? ? Dictated by: Narinder Reich M.D. on 09/15/2021 at 15:05 ? ? Approved by: Narinder Reich M.D. on 09/15/2021 at 15:06 ? Extremity x-ray 4.: Radiologist's Impression: [address] [address] XRay Report Signed Patient: Hannah Meadows MR#: [id number] : 1955 Acct:[id number] Age/Sex: 66 / F Date of Service: 09/15/21 Loc: ED Accession Number: [id number] ?? Procedure: XR foot RT min 3V Ordering Provider: Raz Bailey MD PROCEDURE:? XR FOOT RT MIN 3V ? INDICATIONS:? Fall/injury ? TECHNIQUE:? 3 views of the foot were acquired.? ? COMPARISON:? None. ? FINDINGS:? ? Bones:? No fractures or dislocations.? No suspicious bony lesions.? There is calcaneal spurring noted. ? Soft tissues:? No tibiotalar joint effusion.? Achilles tendon appears normal.? ? ? IMPRESSION:? No acute radiographic findings. If pain persists, followup imaging in 5-7 days is recommended to exclude occult fracture. ? ? Dictated by: Abigail Longoria M.D. on 09/15/2021 at 14:57 ? ? Approved by: Abigail Longoria M.D. on 09/15/2021 at 14:58 ? Extremity x-ray 5.: Radiologist's Impression: [place] [address] XRay Report Signed Patient: Hannah Meadows MR#: [id number] : 1955 Acct:[id number] Age/Sex: 66 / F Date of Service: 09/15/21 Loc: ED Accession Number: [id number] ?? Procedure: XR ankle RT min 3V Ordering Provider: Raz Bailey MD PROCEDURE:? XR ANKLE RT MIN 3V ? INDICATIONS:? Fall/injury ? TECHNIQUE:? 3 views of the ankle were acquired.? ? COMPARISON:? None. ? FINDINGS:? ? Bones:? No fractures or dislocations.? Ankle mortise is normally aligned.? No suspicious bony lesions.? ? Soft tissues:? No tibiotalar joint effusion.? Achilles tendon appears normal.? ? ? IMPRESSION:? No acute radiographic findings. If pain persists, followup imaging in 5-7 days is recommended to exclude occult fracture. ? Dictated by: Abigail Longoria M.D. on 09/15/2021 at 14:56 ? ? Approved by: Abigail Longoria M.D. on 09/15/2021 at 14:57 ? MDM Narrative Medical decision making narrative: Appropriate for discharge home. Exam and imaging are reassuring. Return precautions reviewed with patient. She understands may need repeat x-rays if not improving 7-10 days. Pain is controlled. She does not want anything for pain medication. Up and ambulating at time of discharge. Bearing weight. No CT imaging indicated Discharge Plan Departure Patient Disposition: Home Clinical Impression: Contusion of multiple sites Instructions: DI for Contusion Activity Restrictions/Additional Instructions: Return if worse if any questions or concerns. May need repeat x-ray in 7 or 10 days if your pain is not improving. May use cool packs to sore areas 20 minutes at time for pain. See family doctor in a week for re-evaluation. Prescriptions: No Action lisinopril 5 mg tablet 5 mg PO DAILY 0RF oxybutynin chloride 5 mg tablet extended release 24hr 5 mg PO DAILY 0RF meloxicam 7.5 mg tablet 7.5 mg PO DAILY PRN0RF simvastatin 40 mg tablet 40 mg PO BEDTIME 0RF oxycodone 5 mg tablet 5 mg PO Q4-6H PRN0RF hydrochlorothiazide 25 mg tablet 25 mg PO DAILY 0RF albuterol sulfate [Ventolin HFA] 90 mcg/actuation HFA aerosol inhaler 1 puff INHALATION Q4-6H PRN0RF gnbicvldutb-oxw-ccmwickvl-vitC [Glucosamine Complex-MSM] capsule PO 0RF fish,bora,flax oils-om3,6,9no1 [Triple [place] 3-6-9] 400-400-400 mg capsule 1 cap PO DAILY 0RF nwkop-lc-0-icw-ebx-eyqjfkj-ast [MegaRed [place]-3 Krill Oil] 1,000-230-60 mg capsule 1 cap PO DAILY 0RF citalopram 10 mg tablet 10 mg PO DAILY Qty: 30 5RF oxcarbazepine 300 mg tablet 300 mg PO BID Qty: 60 3RF Rx Instructions: Take 1 tab twice a day prednisone 20 mg tablet 60 mg PO DAILY 5 Days Qty: 15 0RF doxycycline hyclate 100 mg capsule 100 mg PO BID Qty: 14 0RF prednisone 20 mg tablet 40 mg PO DAILY Qty: 10 0RF ciprofloxacin HCl [Cipro] 500 mg tablet 500 mg PO BID Qty: 14 0RF Referrals: Juan Ramon Correa MD [Primary Care Provider] -
--- NOTE | 2021-09-15 15:45 | PC.NURSE ---
Right knee, ankle, hip and shoulder pain. CMS intact. Mild bruising noted to right knee. ROM intact in upper and lower extremities. No obvious deformity noted.
--- NOTE | 2021-09-15 15:47 | PC.NURSE ---
Pt was able to walk without a walker with minimal complaints. States she can walk fine without a walker.
[2021-09-15 16:06] VITALS: BP 140/68; PULSE 89; RESP 18; O2SAT 98
== END 2021-09-15 16:07 | disposition home or self-care (01) ==
PROVIDERS: Emergency Provider Emergency Medicine; Family Provider Family Medicine; PCP Internal Medicine
DX: S80.01XA Contusion of right knee, initial encounter (principal); M25.511 Pain in right shoulder; M25.551 Pain in right hip; M25.571 Pain in right ankle and joints of right foot; W17.89XA Other fall from one level to another, initial encounter
CPT/HCPCS: 73030; 73502; 73562; 73610; 73630; 99281; 99283

== ENCOUNTER 2021-09-19 17:32 | Emergency (ER) | payer MEDICARE, OTHER, SELFPAY ==
[2021-09-19] VITALS (12 sets, daily range): BP systolic 128–179; BP diastolic 60–104; PULSE 67–79; RESP 20–22; TEMP 36.7; O2SAT 95–99; BMI 36.5
--- NOTE | 2021-09-19 17:45 | DI.RAD.S_ITS ---
PROCEDURE: XR CHEST 2V INDICATIONS: shortness of breath TECHNIQUE: 2 views of the chest were acquired. COMPARISON: [facility], CR, XR CHEST 1 VIEW, 01/20/2021, 18:13. [facility], CR, XR CHEST 2V, 12/01/2020, 22:05. FINDINGS: Surgical changes and devices: None. Lungs and pleura: Lungs are clear. No pleural effusions or pneumothorax. Mediastinum: Mediastinal contours are normal. Heart size is normal. Bones and chest wall: No suspicious bony abnormalities. Soft tissues appear unremarkable. IMPRESSION: No acute cardiopulmonary disease. Dictated by: Lyndsey Mosqueda M.D. on 09/19/2021 at 18:03 Approved by: Lyndsey Mosqueda M.D. on 09/19/2021 at 18:04
[2021-09-19 18:32] LABS: Add Manual Diff / Slide Review NO; Alanine Aminotransferase 32 IU/L (<35); Albumin 4.6 g/dL (3.5-5.0); Albumin Globulin Ratio 1.6 (1.0-2.8); Alkaline Phosphatase 78 U/L (38-126); Aspartate Aminotransferase 34 IU/L (14-36); BUN Creatinine Ratio 21.8 (6-22); Basophils Absolute Auto 100 /uL (0-100); Basophils Percent Auto 1.2 % (0-2); Bilirubin Total 0.5 mg/dL (0.2-1.3); Blood Urea Nitrogen 17 mg/dL (7-17); Calcium 9.1 mg/dL (8.4-10.2); Carbon Dioxide 25 mmol/L (22-32); Chloride 108 mmol/L (98-107); Eosinophils Absolute Auto 400 /uL (0-450); Eosinophils Percent Auto 5.6 % (2-4); Estimated Glomerular Filt Rate > 60.0 mL/min (>60); Globulin 2.9 g/dL (1.7-4.1); Glucose 88 mg/dL (80-110); HEMOLYSIS < 15 (0-50); Hematocrit 40.8 % (36-46); Lymphocytes Absolute Auto 2800 /uL (1100-4500); Lymphocytes Percent Auto 41.1 % (25-40); Mean Corpuscular HGB Conc 34.3 % (30-36); Mean Corpuscular Hemoglobin 30.6 PG (26-34); Mean Corpuscular Volume 89.1 fL (80-100); Monocytes Absolute Auto 400 /uL (0-900); Monocytes Percent Auto 5.7 % (3-14); Neutrophils Absolute Auto 3200 /uL (1500-7000); Neutrophils Percent Auto 46.4 % (50-75); Platelet Count 164 X10^3/uL (150-400); Potassium 4.3 mmol/L (3.4-5.1); Red Blood Cell Count 4.58 X10^6/uL (4.0-5.2); Red Cell Distribution Width 12.7 % (11.6-14.8); Sodium 138 mmol/L (137-145); Total Protein 7.5 g/dL (6.3-8.2); White Blood Cell Count 6.8 X10^3/uL (4.5-11.0)
[2021-09-19 18:33] LABS: Lactate (Lactic Acid) 0.7 mmol/L (0.7-2.1)
[2021-09-19 18:40] LABS: Appearance Urine UA CLEAR; Bilirubin Urine UA NEGATIVE (NEGATIVE); Color Urine UA YELLOW; Glucose Urine UA NEGATIVE (Negative); Ketones Urine UA NEGATIVE (NEGATIVE); Leukocyte Esterase Urine UA NEGATIVE (NEGATIVE); Nitrite Urine UA NEGATIVE (Negative); Occult Blood Urine UA TRACE-LYSED (Negative); Protein Urine UA NEGATIVE (Negative); Urobilinogen Urine UA 0.2 E.U./dL (0.2)
[2021-09-19 18:47] LABS: pH Urine UA 7.5 (4.5-8.0)
[2021-09-19 18:55] LABS: Bacteria Urine Occasional (0-1); Culture Indicated Urine Cult Not Indicated; RBC Urine 0-1/HPF (0-5/HPF); Squamous Epithelial Cell Urine 1-5 /HPF (0-5/HPF); WBC Urine 0-1/HPF (0-5/HPF)
--- NOTE | 2021-09-19 21:06 | ED_ITS ---
HPI - SOB/Dyspnea General Chief Complaint: Shortness of Breath/Dyspnea Stated Complaint: Dyspnea and GLF, pain all extremites Time Seen by Provider: 09/19/21 21:05 Source: patient Mode of arrival: Ambulatory Limitations: no limitations History of Present Illness HPI Narrative: The patient complains of increased shortness of breath over the past week. She quit smoking about 3 years ago. She takes inhalers. She is also on BiPAP for sleep apnea. She reports recent upper arm he was normal. With her current dys pnea she does wheezing. She has no chest pain or palpitations. She denies fever chills. She denies peripheral edema. She has received COVID 19 vaccines and booster. She has no history of active COVID. Related Data Home Medications Medication Instructions Recorded Confirmed albuterol sulfate 90 mcg/actuation 1 puff INHALATION Q4-6H PRN 04/12/18 09/23/19 aerosol inhaler (Ventolin HFA) fish, borage, flaxseed oils-omega 1 cap PO DAILY 04/12/18 09/23/19 3,6,9 cb #1 400 mg-400 mg-400 mg cap (Triple [place]anca 3-6-9) ctixwtaswty-gfj-izhrqnzbp-vitC cap PO cap 04/12/18 09/23/19 capsule (Glucosamine Complex-MSM) hydrochlorothiazide 25 mg tablet 25 mg PO DAILY 04/12/18 09/23/19 krill 1,000 mg-omega-3 230 mg-dha 1 cap PO DAILY 04/12/18 09/23/19 60 jg-ech-blelwmara-astaxan capsule (MegaRed Blanca-3 Krill Oil) oxycodone 5 mg tablet 5 mg PO Q4-6H PRN 04/12/18 09/23/19 simvastatin 40 mg tablet 40 mg PO BEDTIME 04/12/18 09/23/19 lisinopril 5 mg tablet 5 mg PO DAILY 11/26/18 09/23/19 oxybutynin chloride 5 mg 5 mg PO DAILY 11/26/18 09/23/19 tablet,extended release 24 hr meloxicam 7.5 mg tablet 7.5 mg PO DAILY PRN 04/22/19 09/23/19 Previous Rx's Medication Instructions Recorded citalopram 10 mg tablet 10 mg PO DAILY #30 tab 06/27/19 oxcarbazepine 300 mg tablet 300 mg PO BID #60 tab 06/27/19 doxycycline hyclate 100 mg capsule 100 mg PO BID #14 cap 12/01/20 prednisone 20 mg tablet 40 mg PO DAILY #10 tab 12/01/20 ciprofloxacin HCl 500 mg tablet 500 mg PO BID #14 tab 12/19/20 (Cipro) prednisone 20 mg tablet 60 mg PO DAILY 5 Days #15 tab 09/20/21 Allergies Allergy/AdvReac Type Severity Reaction Status Date / Time povidone-iodine Allergy Severe hives, Verified 09/15/21 14:20 [From Betadine] blisters soap [From Betadine] Allergy Severe hives, Verified 09/15/21 14:20 blisters Penicillins Allergy Intermediate mouth Verified 09/15/21 14:20 swells bupropion [From Wellbutrin] Allergy Mild Verified 09/15/21 14:20 ibuprofen Allergy Mild Verified 09/15/21 14:20 Sulfa (Sulfonamide Allergy Mild Verified 09/15/21 14:20 Antibiotics) trazodone Allergy Mild Verified 09/15/21 14:20 nitrofurantoin AdvReac Intermediate hives,itchi Verified 09/15/21 14:20 ng aripiprazole [From Abilify] AdvReac Mild akithisia Verified 09/15/21 14:20 fluoxetine [From Prozac] AdvReac Mild Verified 09/15/21 14:20 Review of Systems Constitutional Constitutional: Denies body ache(s), Denies chills, Denies fatigue, Denies fever(s) and Denies headache(s) ENT Ears, Nose, Mouth, and Throat: Denies vertigo, Denies dizziness, Denies headache(s), Denies hoarseness, Denies epistaxis, Denies neck pain, Denies sinus pressure and Denies sore throat Cardiovascular Cardiovascular: Denies chest pain, Denies rapid heart rate and Denies edema Respiratory Respiratory: Reports chest congestion and Reports cough Gastrointestinal Gastrointestinal: Denies abdominal pain and Denies nausea Musculoskeletal Musculoskeletal: Denies arthralgias, Denies back pain, Denies myalgias, Denies neck pain and Denies numbness Integumentary/Breasts Skin/Breast: Denies rash Neurologic Neurologic: Denies confusion, Denies vertigo, Denies dizziness, Denies headache(s) and Denies numbness Psychiatric Psychiatric: Denies confusion Endocrine Endocrine: Denies fatigue Hematologic/Lymphatic On Anticoagulants: No Patient History Medical History Hypertension Social History Smoking Status: Former smoker Smoking Status: Former smoker alcohol intake frequency: holidays/special occasions only Substance Use Type: does not use and other Exam Initial Vital Signs Initial Vital Signs: Vital Signs Temperature 98.1 F 09/19/21 17:37 Pulse Rate 74 09/19/21 17:37 Respiratory Rate 20 09/19/21 17:37 Blood Pressure 179/104 H 09/19/21 17:37 Pulse Oximetry 96 09/19/21 17:37 Const General: cooperative, comfortable, well developed and well groomed HENMT Head: normocephalic and atraumatic Face and sinus: normal facial exam, sinuses nontender and face symmetric Throat: posterior oropharynx normal Eyes General: appearance normal, both eyes and all related structures Neck Neck: normal visual inspection and No JVD Chest Chest: normal inspection of the chest Resp Other: Diffuse bilateral wheezes. Overall air movement is good. Cardio Rate: regular rate Rhythm: regular rhythm Heart Sounds: S1 normal, no murmurs and no rubs GI Palpation: soft and No tender Auscultation: normal bowel sounds Back/Spine/Pelvis Back: normal to inspection and No back tenderness Skin General: no rashes or lesions noted Neuro General: patient alert, patient awake, patient oriented x3 and no focal motor deficits Extrem General: normal to inspection, no pedal edema and no calf tenderness Psych Mental Status: mental status grossly normal Course Course Course Narrative: The patient's evaluations consistent with a COPD exacerbation. She was given to Duoneb, followed by a 2nd albuterol treatment, as well as Solu-Medrol. Subjecti vely she feels better prior to discharge. On repeat exam her lungs are clear. Labs are reassuring, chest x-ray is normal. She is discharged home on her current meds as well as prednisone. Orders Ordered: Discontinued Medications Albuterol (Albuterol 2.5 Mg/3 Ml Neb (Adult)) 5 mg INH NOW ONE Stop: 09/19/21 22:48 Last Admin: 04/04/22 22:45 Dose: 5 mg Documented by: [email or web address] Albuterol/Ipratropium (Albuterol/Ipratropium 3 Ml Ampul) 3 ml INH NOW ONE Stop: 09/19/21 21:11 Last Admin: 09/19/21 21:33 Dose: 3 ml Documented by: [email or web address] Prednisone (Prednisone 20 Mg Tablet) 60 mg PO NOW ONE Stop: 09/19/21 21:11 Last Admin: 09/19/21 21:42 Dose: 60 mg Documented by: NABILA Vital Signs Vital signs: Vital Signs - 8 hr 09/19/21 17:37 09/19/21 21:34 Temperature 98.1 F Pulse Rate 74 Respiratory Rate 20 22 Blood Pressure 179/104 H Pulse Oximetry 96 MDM - SOB/Dyspnea Lab Data Result diagrams: 09/19/21 18:02 09/19/21 18:02 Labs: Lab Results 09/19/21 09/19/21 09/19/21 Range/Units 18:02 18:02 18:02 WBC 6.8 (4.5-11.0) X10^3/uL RBC 4.58 (4.0-5.2) X10^6/uL Hgb 14.0 (12.0-16.0) g/dL Hct 40.8 (36-46) % MCV 89.1 (80-100) fL MCH 30.6 (26-34) PG MCHC 34.3 (30-36) % RDW 12.7 (11.6-14.8) % Plt Count 164 (150-400) X10^3/uL Neut % (Auto) 46.4 L (50-75) % Lymph % (Auto) 41.1 H (25-40) % [place] % (Auto) 5.7 (3-14) % Eos % (Auto) 5.6 H (2-4) % Baso % (Auto) 1.2 (0-2) % Neut # (Auto) 3200 (5083-9559) /uL Lymph # (Auto) 2800 (4693-6233) /uL [place] # (Auto) 400 (0-900) /uL Eos # (Auto) 400 (0-450) /uL Baso # (Auto) 100 (0-100) /uL Sodium 138 (137-145) mmol/L Potassium 4.3 (3.4-5.1) mmol/L Chloride 108 H (98-107) mmol/L Carbon Dioxide 25 (22-32) mmol/L BUN 17 (7-17) mg/dL Creatinine 0.78 (0.52-1.04) mg/dL Estimated GFR > 60.0 (>60) mL/min BUN/Creatinine Ratio 21.8 (6-22) Glucose 88 (80-110) mg/dL Lactate 0.7 (0.7-2.1) mmol/L Calcium 9.1 (8.4-10.2) mg/dL Total Bilirubin 0.5 (0.2-1.3) mg/dL AST 34 (14-36) IU/L ALT 32 (<35) IU/L Alkaline Phosphatase 78 (38-126) U/L Total Protein 7.5 (6.3-8.2) g/dL Albumin 4.6 (3.5-5.0) g/dL Globulin 2.9 (1.7-4.1) g/dL Albumin/Globulin Ratio 1.6 (1.0-2.8) Urine Color Urine Appearance Urine pH (4.5-8.0) Ur Specific [place] (1.000-1.035) Urine Protein (Negative) Urine Glucose (UA) (Negative) g/dL Urine Ketones (NEGATIVE) Urine Occult Blood (Negative) Urine Nitrate (Negative) Urine Bilirubin (NEGATIVE) Urine Urobilinogen (0.2) E.U./dL Ur Leukocyte Esterase (NEGATIVE) Urine RBC (0-5/HPF) Urine WBC (0-5/HPF) Ur Squamous Epith Cells (0-5/HPF) Urine Bacteria (None) Ur Culture Indicated? 09/19/21 Range/Units 18:10 WBC (4.5-11.0) X10^3/uL RBC (4.0-5.2) X10^6/uL Hgb (12.0-16.0) g/dL Hct (36-46) % MCV (80-100) fL MCH (26-34) PG MCHC (30-36) % RDW (11.6-14.8) % Plt Count (150-400) X10^3/uL Neut % (Auto) (50-75) % Lymph % (Auto) (25-40) % [place] % (Auto) (3-14) % Eos % (Auto) (2-4) % Baso % (Auto) (0-2) % Neut # (Auto) (7631-9728) /uL Lymph # (Auto) (9368-6742) /uL [place] # (Auto) (0-900) /uL Eos # (Auto) (0-450) /uL Baso # (Auto) (0-100) /uL Sodium (137-145) mmol/L Potassium (3.4-5.1) mmol/L Chloride (98-107) mmol/L Carbon Dioxide (22-32) mmol/L BUN (7-17) mg/dL Creatinine (0.52-1.04) mg/dL Estimated GFR (>60) mL/min BUN/Creatinine Ratio (6-22) Glucose (80-110) mg/dL Lactate (0.7-2.1) mmol/L Calcium (8.4-10.2) mg/dL Total Bilirubin (0.2-1.3) mg/dL AST (14-36) IU/L ALT (<35) IU/L Alkaline Phosphatase (38-126) U/L Total Protein (6.3-8.2) g/dL Albumin (3.5-5.0) g/dL Globulin (1.7-4.1) g/dL Albumin/Globulin Ratio (1.0-2.8) Urine Color Yellow Urine Appearance Clear Urine pH 7.5 (4.5-8.0) Ur Specific [place] 1.010 (1.000-1.035) Urine Protein Negative (Negative) Urine Glucose (UA) Negative (Negative) g/dL Urine Ketones Negative (NEGATIVE) Urine Occult Blood Trace-lysed (Negative) Urine Nitrate Negative (Negative) Urine Bilirubin Negative (NEGATIVE) Urine Urobilinogen 0.2 (0.2) E.U./dL Ur Leukocyte Esterase Negative (NEGATIVE) Urine RBC 0-1/hpf (0-5/HPF) Urine WBC 0-1/hpf (0-5/HPF) Ur Squamous Epith Cells 1-5 /hpf (0-5/HPF) Urine Bacteria Occasional (0-1) D (None) Ur Culture Indicated? Cult not indicated Imaging Data Chest x-ray: Attestation: I personally reviewed and interpreted this imaging study as follows: (Normal sinus rhythm. No significant ectopy. Normal intervals. No acute ST T wave changes.) Radiologist's Impression: No acute cardiopulmonary process. ECG Data Attestation: I personally reviewed and interpreted this ECG as follows: (Normal sinus rhythm rate 76 beats per minute. Right axis deviation. No ectopy. No acute ST T wave changes.) Discharge Plan Departure Patient Disposition: Home Clinical Impression: Acute exacerbation of chronic obstructive pulmonary disease Instructions: Chronic Obstructive Pulmonary Disease Activity Restrictions/Additional Instructions: Continue your current medications. Prednisone 60 mg daily for the next 5 days. Follow-up with your doctor in about 1 week for repeat evaluation. Return here if obviously worse. Prescriptions: New prednisone 20 mg tablet 60 mg PO DAILY 5 Days Qty: 15 0RF No Action lisinopril 5 mg tablet 5 mg PO DAILY 0RF oxybutynin chloride 5 mg tablet extended release 24hr 5 mg PO DAILY 0RF meloxicam 7.5 mg tablet 7.5 mg PO DAILY PRN0RF simvastatin 40 mg tablet 40 mg PO BEDTIME 0RF oxycodone 5 mg tablet 5 mg PO Q4-6H PRN0RF hydrochlorothiazide 25 mg tablet 25 mg PO DAILY 0RF albuterol sulfate [Ventolin HFA] 90 mcg/actuation HFA aerosol inhaler 1 puff INHALATION Q4-6H PRN0RF fjcskxxpxmc-jac-ncgigmxap-vitC [Glucosamine Complex-MSM] capsule PO 0RF fish,bora,flax oils-om3,6,9no1 [Triple [place]anca 3-6-9] 400-400-400 mg capsule 1 cap PO DAILY 0RF xecnk-tw-2-rkm-dun-agviriy-ast [MegaRed Blanca-3 Krill Oil] 1,000-230-60 mg capsule 1 cap PO DAILY 0RF citalopram 10 mg tablet 10 mg PO DAILY Qty: 30 5RF oxcarbazepine 300 mg tablet 300 mg PO BID Qty: 60 3RF Rx Instructions: Take 1 tab twice a day doxycycline hyclate 100 mg capsule 100 mg PO BID Qty: 14 0RF prednisone 20 mg tablet 40 mg PO DAILY Qty: 10 0RF ciprofloxacin HCl [Cipro] 500 mg tablet 500 mg PO BID Qty: 14 0RF Referrals: Juan Ramon Correa MD [Primary Care Provider] -
[2021-09-19] MEDS: ALBUTEROL/IPRATROPIUM 3 ML AMPUL INH (21:33)
[2021-09-19] MEDS: predniSONE 20 MG TABLET 60 MG PO (21:42)
[2021-09-19] MEDS: ALBUTEROL 2.5 MG/3 ML NEB (ADULT) 5 MG INH (22:45)
== END 2021-09-20 00:49 | disposition home or self-care (01) ==
PROVIDERS: Emergency Medicine; Emergency Provider Emergency Medicine; Family Provider Family Medicine; PCP Internal Medicine
DX: J44.1 Chronic obstructive pulmonary disease with (acute) exacerbation (principal); Z87.891 Personal history of nicotine dependence
CPT/HCPCS: 36415; 71046; 80053; 81001; 83605; 85025; 93005; 93010; 94640; 99284; J7613

== ENCOUNTER 2023-01-23 13:57 | Emergency (ER) | payer MEDICARE, OTHER, SELFPAY ==
[2023-01-23 14:18] VITALS: BP 163/82; PULSE 79; RESP 20; TEMP 36.9; O2SAT 96; BMI 32.5
--- NOTE | 2023-01-23 16:02 | PC.NURSE ---
Addendum entered by Gema Sin CNA 01/23/23 16:06: pt stated that she has been to [facility] and [facility] in [place] but decided to come here today instead. Pt states that she wants to be admitted to the hospital because she cannot function at home. Original Note: pt stated that she came to the ED because her home health nurse that she see's regularly told her to come in for increased falls and weakness. pt lives with daughter and two sons. pt says that she has been using her narcotic pain medication more often than normal and the last time she took them 1200. pt experiences urinary incontinence normally but has been constipated.
--- NOTE | 2023-01-23 17:01 | PC.NURSE ---
Pt ambulated to and from bathroom with walker.
--- NOTE | 2023-01-23 17:28 | PC.NURSE ---
pt states that she has taken ketorolac previously and denies any allergy.
[2023-01-23] MEDS: KETOROLAC 30 MG/ML VIAL IM (17:40)
--- NOTE | 2023-01-23 17:53 | CM.SWNOTE ---
PRODUCT DESIGN MANAGER Note PRODUCT DESIGN MANAGER receives consult from ED provider Suad Helm PA-C. Patient is 67 y/o female with history of Bipolar who presents to ED per recommendation from RN from PCP clinic after GLF. Patient endorses concern for recent GLF, but states she had since then got a FWW. Patient endorses she has wraparound support from [facility] and [facility]. 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 Patient has upcoming appt tomorrow, patient endorses she is not sure why she came to ED today. Patient denies needs from PRODUCT DESIGN MANAGER. PRODUCT DESIGN MANAGER provides patient's RN with DME resources to provide to patient. Patient is picked up by daughter upon d/c, patient states that daughter will take patient to upcoming appt tomorrow. Patient to d/c to home upon medical clearance with close outpatient f/u ANTWON Cantrell
--- NOTE | 2023-01-23 18:37 | ED_ITS ---
HPI - Back Pain/Injury <Suad Helm PA-C - Last Filed: 01/23/23 18:48> General Chief Complaint: Back Pain/Injury Stated Complaint: sent by nurse spinal injury Time Seen by Provider: 01/23/23 15:52 Source: patient History of Present Illness HPI Narrative: 67-year-old female with past medical history chronic back pain, knee pain, hypertension, bipolar disorder presents to the ED status post a fall suffered yesterday. Patient states that she has had frequent falls over the past 2 years due to her back and knee issues. Patient states that she suffered a mechanical fall yesterday, following which her nurse sent her to the ED for further evaluation. Patient denies numbness, tingling, weakness. Patient has urinary incontinence at baseline since 2016. Patient states that her back pain remains unchanged from prior to the fall yesterday. Patient states she has a appointment with Dr. Munguia for a pain injection tomorrow. Patient also has a orthopedic surgeon that she has been seeing. Patient denies fever, chills, chest pain, shortness of breath, lightheadedness, dizziness, syncope. Related Data Home Medications Medication Instructions Recorded Confirmed albuterol sulfate 90 mcg/actuation 1 puff inhalation Q4-6H PRN 04/12/18 09/23/19 aerosol inhaler (Ventolin HFA) fish, borage, flaxseed oils-omega 1 cap PO DAILY 04/12/18 09/23/19 3,6,9 cb #1 400 mg-400 mg-400 mg cap (Triple [place] 3-6-9) [id number]-dbi-yefbzistn-vitC cap PO 04/12/18 09/23/19 capsule (Glucosamine Complex-MSM capsule) hydrochlorothiazide 25 mg tablet 25 mg PO DAILY 04/12/18 09/23/19 krill 1,000 mg-omega-3 230 mg-dha 1 cap PO DAILY 04/12/18 09/23/19 60 hs-omh-mkfildqwp-astaxan capsule (MegaRed [place]yn[place]man-3 Krill Oil) oxycodone 5 mg tablet 5 mg PO Q4-6H PRN 04/12/18 09/23/19 simvastatin 40 mg tablet 40 mg PO BEDTIME 04/12/18 09/23/19 lisinopril 5 mg tablet 5 mg PO DAILY 11/26/18 09/23/19 oxybutynin chloride 5 mg 5 mg PO DAILY 11/26/18 09/23/19 tablet,extended release 24 hr meloxicam 7.5 mg tablet 7.5 mg PO DAILY PRN 04/22/19 09/23/19 Previous Rx's Medication Instructions Recorded citalopram 10 mg tablet 10 mg PO DAILY #30 tabs 06/27/19 oxcarbazepine 300 mg tablet 300 mg PO BID #60 tabs 06/27/19 doxycycline hyclate 100 mg capsule 100 mg PO BID #14 caps 12/01/20 prednisone 20 mg tablet 40 mg PO DAILY #10 tabs 12/01/20 ciprofloxacin HCl 500 mg tablet 500 mg PO BID #14 tabs 12/19/20 (Cipro) cefpodoxime 200 mg tablet 200 mg PO Q12H 10 days #20 tabs 01/23/23 Allergies Allergy/AdvReac Type Severity Reaction Status Date / Time povidone-iodine Allergy Severe hives, Verified 09/15/21 14:20 [From Betadine] blisters soap [From Betadine] Allergy Severe hives, Verified 09/15/21 14:20 blisters Penicillins Allergy Intermediate mouth Verified 09/15/21 14:20 swells bupropion [From Wellbutrin] Allergy Mild Verified 09/15/21 14:20 ibuprofen Allergy Mild Verified 09/15/21 14:20 Sulfa (Sulfonamide Allergy Mild Verified 09/15/21 14:20 Antibiotics) trazodone Allergy Mild Verified 09/15/21 14:20 nitrofurantoin AdvReac Intermediate hives,itchi Verified 09/15/21 14:20 ng aripiprazole [From Abilify] AdvReac Mild akithisia Verified 09/15/21 14:20 fluoxetine [From Prozac] AdvReac Mild Verified 09/15/21 14:20 Review of Systems <Suad Helm PA-C - Last Filed: 01/23/23 18:48> Review of Systems ROS Unobtainable: All systems reviewed & are unremarkable except as noted in HPI and below Constitutional Constitutional: Denies chills, Denies fatigue, Denies fever(s), Denies frequent falls, Denies lethargy and Denies weakness Eyes Eyes: Denies change in vision, Denies eye discharge, Denies irritation and Denies loss of vision ENT Ears, Nose, Mouth, and Throat: Denies change in voice, Denies dizziness, Denies neck pain, Denies sore throat and Denies throat swelling Cardiovascular Cardiovascular: Denies chest pain, Denies irregular heart rhythm, Denies lightheadedness, Denies palpitations, Denies dyspnea, Denies dyspnea on exertion and Denies orthopnea Respiratory Respiratory: Denies cough, Denies dyspnea, Denies dyspnea on exertion and Denies wheezing Gastrointestinal Gastrointestinal: Denies abdominal pain, Denies change in bowel habits, Denies diarrhea, Denies nausea and Denies vomiting Genitourinary Genitourinary: Denies hematuria, Denies flank pain, Denies urinary incontinence and Denies urinary urgency Musculoskeletal Musculoskeletal: Reports back pain, Denies muscle weakness, Denies neck pain, Denies numbness and Denies tingling Comments: R knee pain Integumentary/Breasts Skin/Breast: Denies pruritus, Denies erythema, Denies rash and Denies wounds Neurologic Neurologic: Denies behavioral changes, Denies confusion, Denies dizziness, Denies frequent falls, Denies loss of vision, Denies numbness, Denies tingling and Denies weakness Psychiatric Psychiatric: Denies anxiety, Denies behavioral changes, Denies confusion, Denies depression, Denies homicidal ideation and Denies suicidal ideation Endocrine Endocrine: Denies fatigue, Denies flushing and Denies palpitations Hematologic/Lymphatic Hematologic/Lymphatic: Denies easy bruising Allergic/Immunologic Allergic/Immunologic: Denies urticaria, Denies throat swelling and Denies wheezing Patient History <Suad Helm PA-C - Last Filed: 01/23/23 18:48> Medical History Hypertension Social History Smoking Status: Former smoker Smoking Status: Former smoker alcohol intake frequency: holidays/special occasions only Substance Use Type: marijuana and other Exam <Suad Helm PA-C - Last Filed: 01/23/23 18:48> Narrative Exam Narrative: Const General:?cooperative, healthy appearing and comfortable HENKY Head:?normal to inspection Ears:?hearing grossly normal bilaterally Nose:?external nose normal Face and sinus:?normal facial exam and sinuses nontender Mouth:?oral mucosae normal Throat:?posterior oropharynx normal Eyes General:?appearance normal, both eyes and all related structures Neck Neck:?normal visual inspection and no lymphadenopathy noted Resp Effort & Inspection:?normal respiratory effort Auscultation:?clear to auscultation bilaterally Cardio Rate:?regular rate Rhythm:?regular rhythm Musculoskeletal No midline tenderness to palpation. No paraspinal tenderness to palpation. Right knee nontender to palpation. No bruising. No deformities Neuro General:?patient alert, patient awake and patient oriented x3 Initial Vital Signs Initial Vital Signs: Vital Signs Temperature 98.5 F 01/23/23 14:18 Pulse Rate 79 01/23/23 14:18 Respiratory Rate 20 01/23/23 14:18 Blood Pressure 163/82 H 01/23/23 14:18 Pulse Oximetry 96 01/23/23 14:18 Oxygen Delivery Method Room Air 01/23/23 14:18 <Yvonne Rodriguez DO - Last Filed: 01/25/23 08:43> Initial Vital Signs Initial Vital Signs: Vital Signs Temperature 98.5 F 01/23/23 14:18 Pulse Rate 79 01/23/23 14:18 Respiratory Rate 20 01/23/23 14:18 Blood Pressure 163/82 H 01/23/23 14:18 Pulse Oximetry 96 01/23/23 14:18 Oxygen Delivery Method Room Air 01/23/23 14:18 Course <Suad Helm PA-C - Last Filed: 01/23/23 18:48> Orders Ordered: Discontinued Medications Ketorolac Tromethamine (Ketorolac 30 Mg/Ml Vial) 30 mg IM NOW ONE Stop: 01/23/23 17:27 Last Admin: 01/23/23 17:40 Dose: 30 mg Documented By: MPO Vital Signs Vital signs: Vital Signs - 8 hr 01/23/23 14:18 Temperature 98.5 F Pulse Rate 79 Respiratory Rate 20 Blood Pressure 163/82 H Pulse Oximetry 96 Oxygen Delivery Method Room Air <DO Nghia Penn Last Filed: 01/25/23 08:43> Orders Ordered: Discontinued Medications Ketorolac Tromethamine (Ketorolac 30 Mg/Ml Vial) 30 mg IM NOW ONE Stop: 01/23/23 17:27 Last Admin: 01/23/23 17:40 Dose: 30 mg Documented By: MPO Vital Signs Vital signs: Vital Signs - 8 hr 01/23/23 14:18 Temperature 98.5 F Pulse Rate 79 Respiratory Rate 20 Blood Pressure 163/82 H Pulse Oximetry 96 Oxygen Delivery Method Room Air MDM - Back Pain/Injury <Suad Helm PA-C - Last Filed: 01/23/23 18:48> Lab Data Labs: Urine Dip Bedside Urine Glucose Negative Bedside Urine Bilirubin - Negative Bedside Urine Ketone - Negative Urine Specific [place] 1.010 Bedside Urine Occult Blood - Negative Bedside Urine pH 7.5 Bedside Urine Protein - Negative Bedside Urine Urobilinogen - Negative Bedside Urine Nitrite - Negative Bedside Urine Leukocytes - Negative Esterase MDM Narrative Medical decision making narrative: 67-year-old female with past medical history chronic back pain, knee pain, hy pertension, bipolar disorder presents to the ED status post a fall suffered yesterday. Given patient's history and physical exam, patient is concerns appear related to her chronic back pain. Will give ketorolac for pain. Patient is also takes oxycodone for her aches and pains. There are no new injuries from her fall yesterday. Counseled patient that seeing Dr. Glass and her cardiac nurse specialist or her next best steps to improve her pain. Patient also met with social work for any further resources. ED return precautions were discussed with patient. Patient verbalized understanding. Medical records reviewed: Yes <Yvonne Rodriguez, - Last Filed: 01/25/23 08:43> Lab Data Labs: Urine Dip Bedside Urine Glucose Negative Bedside Urine Bilirubin - Negative Bedside Urine Ketone - Negative Urine Specific [place] 1.010 Bedside Urine Occult Blood - Negative Bedside Urine pH 7.5 Bedside Urine Protein - Negative Bedside Urine Urobilinogen - Negative Bedside Urine Nitrite - Negative Bedside Urine Leukocytes - Negative Esterase Discharge Plan Departure Patient Disposition: Home Clinical Impression: Chronic back pain Instructions: DI for Low Back Pain Activity Restrictions/Additional Instructions: You were evaluated in the ED today for back pain and frequent falls. It appears that this is a chronic issue, you have an appointment with Dr. Munguia for a pain injection. It also appears that you have a orthopedic surgeon that you are consulting. Please follow-up with both those doctors for next steps. Return to the ED if you experience any numbness, tingling, weakness, chest pain, shortness of breath. Prescriptions: New cefpodoxime 200 mg tablet 200 mg PO Q12H 10 Days Qty: 20 0RF Rx Instructions: must administer with a meal/food No Action lisinopril 5 mg tablet 5 mg PO DAILY oxybutynin chloride 5 mg tablet extended release 24hr 5 mg PO DAILY meloxicam 7.5 mg tablet 7.5 mg PO DAILY PRN simvastatin 40 mg tablet 40 mg PO BEDTIME oxycodone 5 mg tablet 5 mg PO Q4-6H PRN hydrochlorothiazide 25 mg tablet 25 mg PO DAILY albuterol sulfate [Ventolin HFA] 90 mcg/actuation HFA aerosol inhaler 1 puff INHALATION Q4-6H PRN ccfpkmbmprb-qoe-gcpyqsawv-vitC [Glucosamine Complex-MSM] capsule PO fish,bora,flax oils-om3,6,9no1 [Triple [place]dman 3-6-9] 400-400-400 mg capsule 1 cap PO DAILY tpkig-fz-0-wkt-lrl-amtwish-ast [MegaRed [place]-3 Krill Oil] 1,000-230-60 mg capsule 1 cap PO DAILY citalopram 10 mg tablet 10 mg PO DAILY Qty: 30 5RF oxcarbazepine 300 mg tablet 300 mg PO BID Qty: 60 3RF Rx Instructions: Take 1 tab twice a day doxycycline hyclate 100 mg capsule 100 mg PO BID Qty: 14 0RF prednisone 20 mg tablet 40 mg PO DAILY Qty: 10 0RF ciprofloxacin HCl [Cipro] 500 mg tablet 500 mg PO BID Qty: 14 0RF Referrals: Jennifer Paul MD [Primary Care Provider] - Stand Alone Forms: Patient Portal/API <Yvonne Rodriguez DO - Last Filed: 01/25/23 08:43> Cosign ED Attending Cosjuan luisature Attestation: I was immediately available in the department for consultation. Documentation has been reviewed.
== END 2023-01-23 17:54 | disposition home or self-care (01) ==
PROVIDERS: Emergency Provider Student in an Organized Health Care Education/Training Program; Family Provider Family Medicine; PCP Internal Medicine
DX: M54.9 Dorsalgia, unspecified (principal); G89.29 Other chronic pain
CPT/HCPCS: 81003; 96372; 99283; J1885

== ENCOUNTER → 2023-02-13 17:14 | Outpatient (CLI) | payer MEDICARE, OTHER, MEDICAID, SELFPAY ==
--- NOTE | 2023-02-13 | DI.MRI.S_ITS ---
PROCEDURE: MR KNEE RT WO CON INDICATIONS: rt knee pain TECHNIQUE: Noncontrast sagittal PD fast spin echo and T2 fast spin echo with fat saturation, sagittal 3-D FLASH with fat saturation; coronal T1 spin echo and PD fast spin echo with fat saturation, and axial PD fast spin echo with fat saturation through the knee. COMPARISON: None. FINDINGS: Image quality: Excellent. Menisci: Subtle oblique tear involving posterior horn of medial meniscus is seen extending to inferior articulating surface. There is peripheral displacement of lateral meniscus bowing lateral collateral ligament with complex appearing tear involving anterior horn and body of lateral meniscus extending to both superior and inferior articulating surfaces. 10 x 7 mm Kerrie meniscal cyst is seen anterior to the lateral meniscus. Moderate grade partial-thickness tear involving posterior lateral meniscal root ligament is seen. Cruciate ligaments: The anterior cruciate ligament is thickened with intrasubstance T2 hyperintense signal. The posterior cruciate ligament is intact. Medial structures: The medial collateral ligament appears intact. The posterior oblique ligament, semimembranosus tendon insertions, oblique popliteal ligament, and meniscocapsular junction appear intact. Visualized portions of the pes anserinus tendons appear normal. No abnormal bursal fluid. Lateral structures: The lateral collateral ligament, long and short heads of the biceps femoris tendon appear thickened with intrasubstance T2 hyperintense signal. Proximal popliteus tendinosis is also noted extending to musculotendinous junction. Iliotibial band appears normal. Anterior structures: The quadriceps and patellar tendons appear intact. Patellar alignment is normal. No femoral trochlear dysplasia or ventral trochlear prominence. No edema in the infrapatellar fat pad. Bones and cartilage: No bone marrow contusions or fractures. Okmi-gq-nqpkcjru tricompartmental osteoarthritis and chondromalacia is seen more notably in lateral femoral tibial compartment. Joint space: There is small knee joint fluid. There is a 2.5 x 2.5 x 5.1 cm Stallworth's cyst. Normal appearing synovial plicae are incidentally noted. IMPRESSION: 1. 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 No fracture or dislocation. Small joint effusion and a Stallworth's cyst as above. No loose bodies. 2. Complex tear involving anterior horn and body of lateral meniscus extending to both superior and inferior articulating surfaces with adjacent Kerrie meniscal cyst as above. Moderate grade partial-thickness tear involving posterior lateral meniscal root ligament. Very subtle oblique tear involving posterior horn of medial meniscus extending to inferior articulating surface. 3. Degenerative changes and/or low-grade intrasubstance partial-thickness tear involving anterior cruciate ligament. No ACL rupture. The PCL is intact. 4. Low to moderate grade LCL sprain/partial-thickness tear. Distal biceps femorals tendinosis. Proximal popliteus tendinosis. Dictated by: Narinder Reich M.D. on 02/14/2023 at 8:47 Approved by: Narinder Reich M.D. on 02/14/2023 at 9:24
== END ==
PROVIDERS: Family Provider Family Medicine; PCP Internal Medicine; Referring Provider Internal Medicine; Visit Provider Internal Medicine
DX: S83.271A Complex tear of lateral meniscus, current injury, right knee, initial encounter (principal); S83.241A Other tear of medial meniscus, current injury, right knee, initial encounter; S83.511A Sprain of anterior cruciate ligament of right knee, initial encounter; S83.421A Sprain of lateral collateral ligament of right knee, initial encounter; M25.561 Pain in right knee; M17.11 Unilateral primary osteoarthritis, right knee; M94.261 Chondromalacia, right knee; M25.461 Effusion, right knee; M71.21 Synovial cyst of popliteal space [Baker], right knee
CPT/HCPCS: 73721